=== PATIENT | female | born 1950 | race Caucasian/White ===

== ENCOUNTER 2017-05-18 12:21 | Inpatient (IN) ==
[2017-05-18 13:40] LABS: Bilirubin,Total 1.4 MG/DL (0.2-1.0); Calcium 9.4 MG/DL (8.5-10.1); Osmolality,Calculated 241.5 MOS/KG (273-304); Total Protein 8.4 G/DL (6.4-8.3)
--- NOTE | 2017-05-18 13:47 | XRay Report ---
Exam: XR chest 1V Date: 05/18/2017 1:08 PM Indication: Cough weight loss Comparison: 05/14/2017 Technical: AP portable upright Findings: The heart is normal in size. No obvious infiltrates or effusions. Mediastinum and bony structures appear intact. Mild scarring suspected in the perihilar regions. Clearing of the bases present with compared to previous study Impression: Mild scarring in the perihilar regions without acute cardiopulmonary pathology. PROCEDURE INTERPRETED AT [facility] DEPARTMENT OF RADIOLOGY Final Report Signed by: Dr. Tyrone Lira
[2017-05-18 13:48] LABS: Basophils % 0.1 % (0.0-0.8); Hematocrit 42.1 VOL% (35.7-47.0); Immature Granulocytes % 0.7 %; Immature Granulocytes Absolute 0.16 #; Lymphocytes # 2.9 10*3/uL (1.4-4.0); Lymphocytes % 12.3 % (21.3-54.2); Mean Corpuscular Hemoglobin 29 PG (27-34); Mean Corpuscular Volume 75.9 FL (87-102); Mean Platelet Volume 12.8 FL (9.6-12.0); Monocytes # 2.3 10*3/uL (0.11-0.8); Neutrophils # 17.9 10*3/uL (1.4-7.4); Neutrophils % 76.9 % (38.7-73.9); Platelet Count 464 T/CUMM (130-400); Red Blood Count 5.55 MC/CUMM (3.8-5.5); Red Cell Distribution Width 13.2 % (9.3-17.3); White Blood Count 23.3 T/CUMM (4-12)
[2017-05-18] MEDS ORDERED: POTASSIUM CHLORIDE 20 MEQ TABLET PO STA (13:51)
[2017-05-18] MEDS ORDERED: SODIUM CHLORIDE 0.9% 1,000 ML IV STA (13:53)
[2017-05-18] MEDS ORDERED: POTASSIUM CHLORIDE RIDER 100 ML IV ONE ×2 (13:53→15:31)
[2017-05-18] MEDS ORDERED: POTASSIUM CHLORIDE 20 MEQ TABLET PO ONE (13:55)
[2017-05-18] MEDS: POTASSIUM CHLORIDE RIDER 10 MEQ in PREMIX 1 EACH IV SCH ×2 (14:02→15:34)
--- NOTE | 2017-05-18 14:27 | CT Report ---
CT abdomen pelvis Indication: Abdominal pain, nausea vomiting and weight loss Comparison: None available Technique: Axial CT imaging of the abdomen and pelvis is performed without contrast. Findings: Cardiac and lung bases are within normal limits CT abdomen: The liver spleen pancreas and adrenal glands are normal in size and density. No evidence of focal lesion is demonstrated in these solid organs. Kidneys are normal in size and density. No evidence of hydronephrosis or nephrolithiasis is seen. The bowel caliber is normal and no wall thickening or adjacent inflammatory change is seen. No evidence of free fluid or free air is present. Appendix is been removed previously. Aortic caliber is normal with moderate amount of calcification. CT pelvis: The bowel and bladder appear within normal limits. The uterus and ovaries are absent. Impression: No evidence of acute process demonstrated. This CT exam was performed using one or more the following dose reduction techniques: Automated exposure control, adjustment of the MA and/or KV according to patient size, or use of iterative reconstruction technique. PROCEDURE INTERPRETED AT [facility] DEPARTMENT OF RADIOLOGY Final Report Signed by: Dr. Tl Rome
--- NOTE | 2017-05-18 15:12 | EKG Report ---
Stationary ECG Study [facility] ER Test Date: 05/18/2017 3:13:08 PM Pat Name: DYLON KEARNEY Department: Room: Gender: F Record Changer: : [id number] Requested by: Jose Francisco Giraldo Order Number: [id number] Reading MD: KERON PEDERSEN Intervals Douglas Rate: 94 P: 72 WV: 147 QRS: 64 QRSD: 79 T: 64 QT: 303 QTc: 355 Interpretive Statements SINUS RHYTHM NONSPECIFIC T-WAVE ABNORMALITY Electronically Signed On 05-19-17 05:18:35 CDT by KERON PEDERSEN [email or web address]
[2017-05-18 15:14] LABS: Apearance,Urine CLOUDY (Clear); Bilirubin,Urine Negative (Negative); Blood, Urine Negative (Negative); Glucose,Urine (UA) Negative (Negative); Ketones,Urine 20 mg/dL (Negative); Mucus,Urine Occasional /LPF (Occasional); Nitrite,Urine Negative (Negative); Protein,Urine 100 MG/DL; RBC,Urine 2 /HPF (0-4); Squamous Epithelial Cell,Urine Occasional /HPF (0-10); Urine Color Yellow (Yellow); Urine Specific Gravity 1.012 (1.001-1.035); Urine Urobilinogen < 2.0 EU/DL (0.2-1.0); WBC,Urine 3 /HPF (0-6)
[2017-05-18] MEDS ORDERED: MAGNESIUM SULF RIDER 4 GM in PREMIX 1 EACH IV PRN (15:32)
[2017-05-18] MEDS ORDERED: MAGNESIUM SULF RIDER 2 GM in PREMIX 1 EACH IV PRN (15:32)
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
[2017-05-18] MEDS ORDERED: SODIUM CHLORIDE 0.9% 1,000 ML IV SCH (16:00)
[2017-05-18] MEDS: SODIUM CHLOR 0.9% KCL 20 MEQ 20 MEQ/1,000 ML BAG IV SCH (16:46)
[2017-05-18] MEDS: CIPROFLOXACIN INJ 400 MG in PREMIX 1 EACH IV SCH (16:47)
[2017-05-18 16:49] LABS: Lymphocytes 19 % (20-55); Microcytosis Slight; Platelet Estimate Increased; Segmented Neutrophils 75 % (50-85); Total Cells Counted 100
[2017-05-18] MEDS: ONDANSETRON 4 MG/2 ML VIAL IV PRN (16:53)
[2017-05-18] MEDS: metroNIDAZOLE INJ 500 MG in PREMIX 1 EACH IV SCH ×2 (17:57→22:57)
[2017-05-18] MEDS ORDERED: TEMAZEPAM 15 MG CAPSULE PO ONE (21:40)
[2017-05-18] MEDS: SODIUM CHLORIDE 1 GM TABLET PO SCH (22:57)
[2017-05-19] MEDS: CIPROFLOXACIN INJ 400 MG in PREMIX 1 EACH IV SCH ×2 (03:09→16:04)
[2017-05-19] MEDS: metroNIDAZOLE INJ 500 MG in PREMIX 1 EACH IV SCH ×4 (04:30→22:08)
[2017-05-19 06:07] LABS: Albumin 3.1 G/DL (3.4-5.0); Bilirubin,Total 1.3 MG/DL (0.2-1.0); Calcium 8.3 MG/DL (8.5-10.1); Magnesium 2.1 MG/DL (1.8-2.4); Osmolality,Calculated 250.6 MOS/KG (273-304); Total Protein 6.2 G/DL (6.4-8.3)
[2017-05-19 06:16] LABS: Potassium 2.5 MMOL/L (3.5-5.1)
[2017-05-19] MEDS: POTASSIUM CHLORIDE RIDER 10 MEQ in PREMIX 1 EACH IV PRN ×6 (06:33→19:03)
[2017-05-19] MEDS: ONDANSETRON 4 MG/2 ML VIAL IV PRN (09:07)
[2017-05-19] MEDS: PANTOPRAZOLE 40 MG VIAL IV SCH (09:07)
[2017-05-19] MEDS: SODIUM CHLORIDE 1 GM TABLET PO SCH ×3 (09:54→22:07)
[2017-05-19] MEDS ORDERED: POTASSIUM CHLORIDE 20 MEQ TABLET PO ONE (10:38)
--- NOTE | 2017-05-19 10:53 | Hospitalist Progress Note ---
Assessment and Plan (1) Hyponatremia Status: Acute Assessment and plan: At the time of ED presentation, patient's sodium level was noted at 118. The patient was absent of any profound neurological deficits at the time of assessment. We will carefully replace and recheck labs in a.m. We will start normal saline with 20 of KCl at 65 mL an hour and sodium chloride tablets 2 g 3 times daily. 05/19-modest improvement in sodium; sodium noted at 124 today from 118 at the time of admission. No profound neurological deficits noted. We will continue normal saline with 20 KCl at 65 mL/hr and sodium chloride tablets 2 g 3 times daily. We will recheck sodium level in a.m. Current Visit: Yes (2) Hypokalemia Status: Acute Assessment and plan: Potassium was noted at 2.0 at the time of admission. We will carefully replace and recheck in a.m. We will start normal saline with 20 of KCl at 65 mL an hour. 05/19-Modest improvement in potassium however potassium remains low. Potassium noted at 2.5. We will give her 40 mEq of potassium as a one-time dose today in addition to potassium replacement protocol. We will continue normal saline with 20 KCl at 65 mL an hour. We will recheck CMP in a.m. Current Visit: Yes (3) Diarrhea Status: Acute Assessment and plan: The patient had multiple episodes of diarrhea in the ED. She reports that the diarrhea has been chronic in nature for the last couple of months. We have obtained stool specimen for ova and parasites, WBCs, C. difficile, and Gram stain. We will gently rehydrate and reassess in a.m. Current Visit: Yes (4) Unsatisfactory living conditions Status: Acute Assessment and plan: Patient currently lives alone. Her sister was present at bedside and voiced multiple concerns regarding the patient's current living situation. She spoke with the apartment purchasing manager/sales in the apartment purchasing manager/sales has expressed concerns to her also regarding the patient's living situation. We will consult social media content specialist and case management to evaluate for placement at the time of discharge. 05/19-social media content specialist has been consulted for alliance evaluation and swing bed placement. Current Visit: Yes (5) Weakness generalized Status: Acute Assessment and plan: We will consult physical and Occupational Therapy to evaluate and treat. Current Visit: Yes Hospitalist: Subjective Interval history: Patient seen and examined; no significant overnight events reported per staff. Sodium remains low at 2.5 today modest improvement; from 2.1 yesterday. Sodium noted at 124 up from 118 yesterday. Exam - Constitutional Vitals: Period Temp Pulse Resp BP Sys/Blanco Pulse Ox Last 24 Hr 98.2 F-99.2 F 84-113 16-24 90-154/51-110 97-100 General appearance: normal weight - Head Head exam: Present: normal inspection, normocephalic, atraumatic - Eye Eye exam: Present: EOMI. Absent: conjunctival injection Pupils: Present: SYEDA, normal accommodation - ENT ENT exam: Present: normal exam, normal external ear exam, normal oropharynx - Neck Neck exam: Present: normal inspection. Absent: lymphadenopathy, meningismus, tenderness, thyromegaly - Respiratory Respiratory exam: Present: clear to auscultation bilaterally. Absent: rales, rhonchi, stridor, wheezes - Cardiovascular Cardiovascular exam: Present: regular rate and rhythm. Absent: carotid bruit, diastolic murmur, gallop, JVD, rubs, systolic murmur - GI/Abdominal GI/Abdominal exam: Present: normal bowel sounds, soft - Extremities Exam Extremities exam: Present: normal inspection, normal capillary refill, full ROM. Absent: edema - Back Exam Back exam: Present: normal inspection - Neurological Exam Neurological exam: Present: alert, oriented X3, CN II-XII intact - Psychiatric Psychiatric exam: Present: flat affect - Skin Skin exam: Present: normal color, warm, dry Results - Labs CBC & BMP: 05/18/17 13:00 05/19/17 04:25 Lab Results: I have reviewed the past 24 hour labs
[2017-05-19] MEDS: ALPRAZolam 0.25 MG TABLET PO PRN ×2 (11:13→22:07)
--- NOTE | 2017-05-19 18:11 | Gastrointestinal Consult Note ---
Assessment and Plan (1) Nausea vomiting and diarrhea Status: Acute Assessment and plan: This patient has some nausea, vomiting, and diarrhea of unclear etiology and duration. There are no family members at the bedside and so the patient is minimizing her symptoms. With her sodium being this low as well as potassium there may be vomiting present perhaps commingled with psychogenic polydipsia as the patient tends to rehydrate with multiple bottles of 20 ounces of water per day although she seems conscious that she should be drinking some Gatorade is unclear what proportion these 2 liquids are being ingested. She appears to be responding well to sodium tablets and potassium as well as hydration. She is refusing GI workup here at this hospital and states that she much prefers to be seen by her physicians at [facility] and that [facility] is the center that she typically uses. She states that she would like to be seen by Jose Good if any scopes were required. I did relate to the patient that with her sodium being as low as it is that no anesthesiologist would allow routine endoscopic evaluation in any event. I am going to check her stools for Cryptosporidium and Giardia as well as rechecking C. difficile and a fecal white blood cell count. I suspect that she may have some underlying gastritis and that this is improved with IV pantoprazole. She could likely be advanced to a more solid diet which would cut back on her diarrhea somewhat, provided she is feeling better tomorrow. Would strongly suggest using a low lactose, low residue diet. Current Visit: Yes (2) Abnormal weight loss Status: Acute Assessment and plan: The patient's sister states that she has lost approximately 35-40 pounds over the last 4-5 months. This may certainly be volitional with decreased appetite and worsening of her psychiatric illness/grief. Patient may also be losing weight because of colon cancer, chronic inflammatory bowel disease, gastritis with poor p.o. intake, or a host of other GI issues. We await stool studies to see whether infection may be playing a role. I suspect that once her acid is blocked and her anxiety is controlled she may be a will tolerate a more solid diet. The patient may benefit from upper endoscopy or lower endoscopy but basically is refusing these evaluations at the time being until she can presented over at [facility] to Dr. Good. This is her choice. If she does change her mind, we could certainly consider doing the above procedures, noting that there are risks involved which include but are not limited to: Bleeding, infection, perforation, cardiac and pulmonary compromise. Current Visit: Yes History of Present Illness Chief complaint: Nausea/vomiting/diarrhea History of present illness: Ms. Cornelius is a 66 year old female who states that she gets most of her care provided at [facility], she states that she has had both upper and lower endoscopy done in the past and under no circumstances wishes to have either of these procedures done here at this hospital, she states that she will be going to see Dr. Jose Good in the future if these are needed. The patient has a great deal of tangential thinking but as near as I can figure out she has a history of nausea and vomiting and diarrhea that brought her to the emergency room runs recently, she states this is been going on for only last 6 days but during a previous encounter with hospitalist it was admitted that she had lost approximately 35-40 pounds over the last 5 months and that she was having some epigastric tenderness which is now dissipated completely on pantoprazole p.o. The patient states that because of the diarrhea she had been hydrating very aggressively at home including multiple 20 ounce bottles of water which may have had some bearing on her sodium level with psychogenic polydipsia. In retrospect she thinks that her diarrhea was not very severe at home at all this she was perhaps having 2 bowel movements per day she was having some nausea and vomiting but again only low-grade in her opinion. Her potassium level was down to 2.0 and her sodium level had been as low as 118 by laboratory testing by laboratory testing here at the hospital. She does not appear to be on any lithium. Her sodium is being treated with normal saline with potassium supplementation, oral supplementation of potassium as well as sodium chloride tablets 2 g p.o. 3 times daily. The patient's white blood cell count was 23.3 with a normal sinus hematocrit and hemoglobin of 42.1 and hemoglobin of 16.0. MCV is low at 75.9. Microbiology reports the patient had a stool culture done that was negative as well as C. difficile, fecal leukocytes have not been checked. She does not have much in the way of nausea now, no abdominal pain, she thinks that she could probably eat some food but she is afraid to try advancing her diet. At the same time as she says that she states that she does not want to drink clear liquids is make the diarrhea worse. She has not noticed any bright red blood per rectum but does feel raw from the multiple bowel movements. Home Medications Medication Instructions Recorded Confirmed Type Aspirin EC Tab 81 mg PO DAILY 05/18/17 05/18/17 History Esomeprazole Magnesium [Nexium] 40 mg PO DAILY 05/18/17 05/18/17 History Hydrocodone/Acetaminophen 1 each PO Q8HR PRN 05/18/17 05/18/17 History [Hydrocodon-Acetaminophn 10-325] Allergies Allergy/AdvReac Type Severity Reaction Status Date / Time Penicillins Allergy Unknown/Unable Verified 05/14/17 17:08 to obtain steroids Allergy Unknown/Unable Uncoded 05/14/17 17:08 to obtain Medical,Surgical,& Family Hx - Medical History HEENT: History of: Eye Problem (detached retnial) Gastrointestinal: History of: GI Problems (ulcer) - Surgical History Abdominal Surgeries: Surgical HX of: Abdominal Surgery Reproductive Surgeries: Surgical HX of;: Hysterectomy - Social History Smoking Status: Never smoker Frequency of Alcohol Use: None Type of Drug Use: None Review of systems: Constitutional: Denies fever, chills, but positive for recent nausea, and vomiting Eyes: Denies dry eyes, and scleral icterus HENT: Admits to frequent headaches Cardiovascular: Denies acute chest pain and claudication Respiratory: Denies shortness of breath, wheezing, and difficulty breathing, denies cough Gastrointestinal: As noted in the HPI Genitourinary: Denies dysuria and hematuria Neurologic: Denies vision loss, and loss of sensation Musculoskeletal: Denies joint swelling, but does present with joint stiffness, and muscular weakness Psychiatric: Patient does have some anxiety and depression is unclear if she has had previous episodes of leslie symptoms Heme-Lymph: She does admit to some easy bruising, lymph node enlargement/ tenderness, but no night sweats, excessive bleeding Allergies-immunologic: Denies pruritus and rhinorrhea Exam - Constitutional Vitals: Period Temp Pulse Resp BP Sys/Blanco Pulse Ox Last 24 Hr 98.2 F-99 F 82-113 18-24 90-149/51-76 97-99 Results - Labs CBC & BMP: 05/18/17 13:00 05/19/17 04:25
[2017-05-19] MEDS: SODIUM CHLOR 0.9% KCL 20 MEQ 20 MEQ/1,000 ML BAG IV SCH (22:08)
[2017-05-20 02:44] LABS: Basophils % 0.2 % (0.0-0.8); Eosinophils # 0.1 10*3/uL (0.0-0.87); Eosinophils % 0.3 % (0.00-10.9); Hematocrit 36.8 VOL% (35.7-47.0); Hemoglobin 13.4 GM/DL (12.0-16.0); Immature Granulocytes % 0.9 %; Immature Granulocytes Absolute 0.19 #; Lymphocytes # 4.6 10*3/uL (1.4-4.0); Mean Corpuscular HGB Conc 36.4 GM/DL (32-36); Mean Corpuscular Hemoglobin 29 PG (27-34); Mean Corpuscular Volume 79.5 FL (87-102); Mean Platelet Volume 12.6 FL (9.6-12.0); Monocytes # 2.6 10*3/uL (0.11-0.8); Monocytes % 12.5 % (1.7-12.7); Neutrophils # 13.3 10*3/uL (1.4-7.4); Neutrophils % 64.1 % (38.7-73.9); Platelet Count 334 T/CUMM (130-400); Red Blood Count 4.63 MC/CUMM (3.8-5.5); Red Cell Distribution Width 13.7 % (9.3-17.3); White Blood Count 20.8 T/CUMM (4-12)
[2017-05-20 02:58] LABS: Albumin 3.1 G/DL (3.4-5.0); Bilirubin,Total 1.1 MG/DL (0.2-1.0); Calcium 8.6 MG/DL (8.5-10.1); Magnesium 2.2 MG/DL (1.8-2.4); Osmolality,Calculated 265.4 MOS/KG (273-304); Phosphorous 1.9 MG/DL (2.5-4.9); Potassium 3.3 MMOL/L (3.5-5.1)
[2017-05-20 03:25] LABS: Eosinophils 1 % (0-10); Lymphocytes 29 % (20-55); Segmented Neutrophils 58 % (50-85); Total Cells Counted 100
[2017-05-20 03:27] LABS: Platelet Estimate Normal
[2017-05-20] MEDS: CIPROFLOXACIN INJ 400 MG in PREMIX 1 EACH IV SCH ×2 (03:59→18:30)
[2017-05-20] MEDS: metroNIDAZOLE INJ 500 MG in PREMIX 1 EACH IV SCH ×4 (05:07→22:16)
[2017-05-20] MEDS: POTASSIUM CHLORIDE RIDER 10 MEQ in PREMIX 1 EACH IV PRN ×4 (06:25→15:18)
[2017-05-20] MEDS ORDERED: POTASSIUM CHLORIDE 20 MEQ TABLET PO ONE (07:13)
--- NOTE | 2017-05-20 09:37 | Hospitalist Progress Note ---
Assessment and Plan (1) Hyponatremia Status: Acute Assessment and plan: At the time of ED presentation, patient's sodium level was noted at 118. The patient was absent of any profound neurological deficits at the time of assessment. We will carefully replace and recheck labs in a.m. We will start normal saline with 20 of KCl at 65 mL an hour and sodium chloride tablets 2 g 3 times daily. 05/19-modest improvement in sodium; sodium noted at 124 today from 118 at the time of admission. No profound neurological deficits noted. We will continue normal saline with 20 KCl at 65 mL/hr and sodium chloride tablets 2 g 3 times daily. We will recheck sodium level in a.m. 05/20-Sodium improved today; sodium noted at 133 today. We will continue normal saline with 20 KCl 65 mL an hour. We will decrease to sodium chloride tablets to once daily. Current Visit: Yes (2) Hypokalemia Status: Acute Assessment and plan: Potassium was noted at 2.0 at the time of admission. We will carefully replace and recheck in a.m. We will start normal saline with 20 of KCl at 65 mL an hour. 05/19-Modest improvement in potassium however potassium remains low. Potassium noted at 2.5. We will give her 40 mEq of potassium as a one-time dose today in addition to potassium replacement protocol. We will continue normal saline with 20 KCl at 65 mL an hour. We will recheck CMP in a.m. 05/20-Potassium noted at 3.3. We will replace and recheck in a.m. Current Visit: Yes (3) Diarrhea Status: Acute Assessment and plan: The patient had multiple episodes of diarrhea in the ED. She reports that the diarrhea has been chronic in nature for the last couple of months. We have obtained stool specimen for ova and parasites, WBCs, C. difficile, and Gram stain. We will gently rehydrate and reassess in a.m. 05/20-multiple episodes of diarrhea continue. Stools were essentially negative for C. difficile, white blood cells, and ova and parasites. We will continue hydration and start Questran. Current Visit: Yes (4) Unsatisfactory living conditions Status: Acute Assessment and plan: Patient currently lives alone. Her sister was present at bedside and voiced multiple concerns regarding the patient's current living situation. She spoke with the apartment client service and consulting manager in the apartment client service and consulting manager has expressed concerns to her also regarding the patient's living situation. We will consult dialysis social worker and case management to evaluate for placement at the time of discharge. 05/19-dialysis social worker has been consulted for alliance evaluation and swing bed placement. Current Visit: Yes (5) Weakness generalized Status: Acute Assessment and plan: We will consult physical and Occupational Therapy to evaluate and treat. Current Visit: Yes Hospitalist: Subjective Interval history: Patient seen and examined; chart reviewed. No significant overnight events reported per staff. Evaluated by GI on yesterday; however patient refuses GI workup at this time. Exam - Constitutional Vitals: Period Temp Pulse Resp BP Sys/Blanco Pulse Ox Last 24 Hr 97.9 F-99.3 F 79-95 18-20 114-149/61-71 96-99 General appearance: normal weight, no acute distress - Head Head exam: Present: normal inspection, normocephalic, atraumatic - Eye Eye exam: Present: EOMI Pupils: Present: SYEDA, normal accommodation - ENT ENT exam: Present: normal exam, normal external ear exam, normal oropharynx - Neck Neck exam: Present: normal inspection, lymphadenopathy, meningismus, thyromegaly - Respiratory Respiratory exam: Present: clear to auscultation bilaterally. Absent: rales, rhonchi, stridor, wheezes - Cardiovascular Cardiovascular exam: Present: regular rate and rhythm. Absent: carotid bruit, diastolic murmur, gallop, JVD, rubs, systolic murmur - GI/Abdominal GI/Abdominal exam: Present: normal bowel sounds, soft. Absent: firm, guarding, tenderness, rebound - Extremities Exam Extremities exam: Present: normal inspection, normal capillary refill, full ROM. Absent: edema - Back Exam Back exam: Present: normal inspection - Neurological Exam Neurological exam: Present: alert, oriented X3, CN II-XII intact - Psychiatric Psychiatric exam: Present: flat affect - Skin Skin exam: Present: normal color, warm, dry Results - Labs CBC & BMP: 05/20/17 01:42 05/20/17 01:42 Lab Results: I have reviewed the past 24 hour labs
[2017-05-20] MEDS ORDERED: ZINC OXIDE 16% PASTE 57 GM TUBE TOP PRN (09:41)
[2017-05-20] MEDS: CHOLESTYRAMINE/ASPARTAME 4 GM PACK PO SCH ×2 (10:13→20:19)
[2017-05-20] MEDS: PANTOPRAZOLE 40 MG VIAL IV SCH (10:13)
[2017-05-20] MEDS: SODIUM CHLORIDE 1 GM TABLET PO SCH (10:16)
[2017-05-20] MEDS: ALPRAZolam 0.25 MG TABLET PO PRN ×2 (11:07→20:19)
[2017-05-20] MEDS: ZINC OXIDE 16% PASTE 57 GM TUBE TOP SCH ×2 (11:07→20:21)
--- NOTE | 2017-05-20 20:22 | Gastrointestinal Progress Note ---
Assessment and Plan (1) Nausea vomiting and diarrhea Status: Acute Assessment and plan: This patient has some nausea, vomiting, and diarrhea of unclear etiology and duration. There are no family members at the bedside and so the patient is minimizing her symptoms. With her sodium being this low as well as potassium there may be vomiting present perhaps commingled with psychogenic polydipsia as the patient tends to rehydrate with multiple bottles of 20 ounces of water per day although she seems conscious that she should be drinking some Gatorade is unclear what proportion these 2 liquids are being ingested. She appears to be responding well to sodium tablets and potassium as well as hydration. She is refusing GI workup here at this hospital and states that she much prefers to be seen by her physicians at [facility] and that [facility] is the center that she typically uses. She states that she would like to be seen by Jose Good if any scopes were required. I did relate to the patient that with her sodium being as low as it is that no anesthesiologist would allow routine endoscopic evaluation in any event. I am going to check her stools for Cryptosporidium and Giardia as well as rechecking C. difficile and a fecal white blood cell count. I suspect that she may have some underlying gastritis and that this is improved with IV pantoprazole. She could likely be advanced to a more solid diet which would cut back on her diarrhea somewhat, provided she is feeling better tomorrow. Would strongly suggest using a low lactose, low residue diet. 05/20/17--patient is still having low-grade diarrhea measured by the nurses is being 2-3 per day. Her electrolytes are markedly improved. C. difficile is now negative 2 with negative fecal white blood cells and stool cultures that are negative as well. Patient's fecal fat is pending as is Cryptosporidium and Giardia but I suspect these will all be negative as well. At this point I would normally have done a colonoscopy except the patient is refusing this and wishes to have this done as an outpatient at [facility]. I have no problem with that. She can follow-up with Dr. Jose Good in the future. Is there is nothing more for me to offer, will sign off this case at this time. She might benefit from use of Viberzi 100 mg p.o. twice daily for diarrhea predominant irritable bowel syndrome if on biopsy she proves not to have infectious colitis. I would hold off on treating her with much of anything until she can undergo the scope, especially with the elevation white blood cell count she is experiencing. Current Visit: Yes (2) Abnormal weight loss Status: Acute Assessment and plan: The patient's sister states that she has lost approximately 35-40 pounds over the last 4-5 months. This may certainly be volitional with decreased appetite and worsening of her psychiatric illness/grief. Patient may also be losing weight because of colon cancer, chronic inflammatory bowel disease, gastritis with poor p.o. intake, or a host of other GI issues. We await stool studies to see whether infection may be playing a role. I suspect that once her acid is blocked and her anxiety is controlled she may be a will tolerate a more solid diet. The patient may benefit from upper endoscopy or lower endoscopy but basically is refusing these evaluations at the time being until she can presented over at [facility] to Dr. Good. This is her choice. If she does change her mind, we could certainly consider doing the above procedures, noting that there are risks involved which include but are not limited to: Bleeding, infection, perforation, cardiac and pulmonary compromise. 05/20/17--the patient may certainly have some of his weight loss due to underlying mental status issues. 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 She is on proton pump inhibitors for acid suppression to see if this helps out with her appetite. She has had a significant weight loss but prefers to follow-up with Dr. Good at [facility] for her future endoscopy and I have no problem with this. She is decides to undergo further GI workup here please reconsult me. Currently she does not appear to have any infectious organisms in her colon and so if evaluation of her colon takes place in the future and she does not have any microscopic or collagenous colitis in addition to no infectious colitis he will be prudent to try her on some Viberzi release Levsin to suppress her low-grade diarrhea. Thank you for the opportunity to meet this very interesting if somewhat loquacious patient. Current Visit: Yes Gastroenterology - PN: Subj Interval history: White blood cell count is mildly improved previously at 20 3.3K now down to 20.8 K. The patient's hydration has brought her hemoconcentration/hematocrit 42.1% down to 36.8%. She states that she does not feel much better, but I stenosis or documenting that her bowel movements down from 3 a day to 2 a day, with excellent urinary output at this point. Sodium and potassium levels are vastly improved from 118 and 2.0 on admission now up to 133 and 3.3. Electrolyte his potassium levels up to 3.7 as of 1600 tonight. Liver function tests are within normal limits at this point. The patient still seems slightly manic and still having flight of ideas. 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 Once again her sister is not by the bedside and so the veracity of these answers is unclear. Exam (Progress Note) - Constitutional Vitals: Period Temp Pulse Resp BP Sys/Blanco Pulse Ox Last 24 Hr 97.9 F-98.4 F 82-104 18-20 107-139/61-78 96-98 - Head Head exam: Present: normocephalic - Eye Eye exam: Present: EOMI - Respiratory Respiratory exam: Present: clear to auscultation bilaterally - Cardiovascular Cardiovascular exam: Present: regular rate and rhythm - GI/Abdominal GI/Abdominal exam: Present: normal bowel sounds, soft. Absent: distended, guarding, rebound - Neurological Exam Neurological exam: Present: alert, oriented X3 - Psychiatric Psychiatric exam: Present: normal affect, anxious - Skin Skin exam: Present: warm Results - Labs CBC & BMP: 05/20/17 01:42 05/20/17 17:08
[2017-05-21] MEDS: CIPROFLOXACIN INJ 400 MG in PREMIX 1 EACH IV SCH ×2 (03:20→16:39)
[2017-05-21] MEDS: SODIUM CHLOR 0.9% KCL 20 MEQ 20 MEQ/1,000 ML BAG IV SCH ×2 (03:21→22:35)
[2017-05-21] MEDS: metroNIDAZOLE INJ 500 MG in PREMIX 1 EACH IV SCH ×4 (04:28→22:33)
[2017-05-21 07:02] LABS: Basophils # 0.1 10*3/uL (0.0-0.2); Basophils % 0.2 % (0.0-0.8); Eosinophils # 0.2 10*3/uL (0.0-0.87); Eosinophils % 0.7 % (0.00-10.9); Hemoglobin 13.4 GM/DL (12.0-16.0); Immature Granulocytes Absolute 0.24 #; Lymphocytes # 3.1 10*3/uL (1.4-4.0); Lymphocytes % 12.4 % (21.3-54.2); Mean Corpuscular HGB Conc 36.2 GM/DL (32-36); Mean Corpuscular Hemoglobin 29 PG (27-34); Mean Corpuscular Volume 79.9 FL (87-102); Monocytes % 7.9 % (1.7-12.7); Neutrophils # 19.4 10*3/uL (1.4-7.4); Neutrophils % 77.8 % (38.7-73.9); Platelet Count 337 T/CUMM (130-400); Red Blood Count 4.63 MC/CUMM (3.8-5.5); Red Cell Distribution Width 13.9 % (9.3-17.3); White Blood Count 24.9 T/CUMM (4-12)
[2017-05-21 07:26] LABS: Giant Platelets Few; Hypochromasia 1+; Lymphocytes 14 % (20-55); Platelet Estimate Adequate; Segmented Neutrophils 78 % (50-85); Total Cells Counted 100
[2017-05-21 07:30] LABS: Albumin 3.2 G/DL (3.4-5.0); Bilirubin,Total 0.8 MG/DL (0.2-1.0); Calcium 8.4 MG/DL (8.5-10.1); Magnesium 2.1 MG/DL (1.8-2.4); Osmolality,Calculated 262.5 MOS/KG (273-304); Potassium 3.3 MMOL/L (3.5-5.1); Total Protein 6.1 G/DL (6.4-8.3)
--- NOTE | 2017-05-21 09:40 | Hospitalist Progress Note ---
Assessment and Plan (1) Hyponatremia Status: Acute Assessment and plan: At the time of ED presentation, patient's sodium level was noted at 118. The patient was absent of any profound neurological deficits at the time of assessment. We will carefully replace and recheck labs in a.m. We will start normal saline with 20 of KCl at 65 mL an hour and sodium chloride tablets 2 g 3 times daily. 05/19-modest improvement in sodium; sodium noted at 124 today from 118 at the time of admission. No profound neurological deficits noted. We will continue normal saline with 20 KCl at 65 mL/hr and sodium chloride tablets 2 g 3 times daily. We will recheck sodium level in a.m. 05/20-Sodium improved today; sodium noted at 133 today. We will continue normal saline with 20 KCl 65 mL an hour. We will decrease to sodium chloride tablets to once daily. 05/21- Sodium noted at 132 today; we will continue normal saline 20 KCl at 65 milliliters an hour. We will increase sodium chloride tablets to twice daily Current Visit: Yes (2) Hypokalemia Status: Acute Assessment and plan: Potassium was noted at 2.0 at the time of admission. We will carefully replace and recheck in a.m. We will start normal saline with 20 of KCl at 65 mL an hour. 05/19-Modest improvement in potassium however potassium remains low. Potassium noted at 2.5. We will give her 40 mEq of potassium as a one-time dose today in addition to potassium replacement protocol. We will continue normal saline with 20 KCl at 65 mL an hour. We will recheck CMP in a.m. 05/20-Potassium noted at 3.3. We will replace and recheck in a.m. 05/21- Potassium noted at 3.3. Will replace and recheck in AM. Current Visit: Yes (3) Diarrhea Status: Acute Assessment and plan: The patient had multiple episodes of diarrhea in the ED. She reports that the diarrhea has been chronic in nature for the last couple of months. We have obtained stool specimen for ova and parasites, WBCs, C. difficile, and Gram stain. We will gently rehydrate and reassess in a.m. 05/20-multiple episodes of diarrhea continue. Stools were essentially negative for C. difficile, white blood cells, and ova and parasites. We will continue hydration and start Questran. Current Visit: Yes Qualifiers: Diarrhea type: unspecified type Qualified Code(s): R19.7 - Diarrhea, unspecified (4) Unsatisfactory living conditions Status: Acute Assessment and plan: Patient currently lives alone. Her sister was present at bedside and voiced multiple concerns regarding the patient's current living situation. She spoke with the apartment manager risk in the apartment manager risk has expressed concerns to her also regarding the patient's living situation. We will consult social sciences chair and case management to evaluate for placement at the time of discharge. 05/19-social sciences chair has been consulted for alliance evaluation and swing bed placement. Current Visit: Yes (5) Weakness generalized Status: Acute Assessment and plan: We will consult physical and Occupational Therapy to evaluate and treat. 05/21-The patient has refused to get out of bed. I along with the nursing staff assisted the patient to the bathroom this morning. The patient's gait is very steady only requiring standby assist for safety. Current Visit: Yes Hospitalist: Subjective Interval history: Patient seen and examined; no significant overnight events reported. Lazo catheter removed on yesterday; however patient is refusing to get out of bed and go to the bathroom. Exam - Constitutional Vitals: Period Temp Pulse Resp BP Sys/Blanco Pulse Ox Last 24 Hr 97.9 F-98.4 F 90-120 18-20 104-139/58-78 18-98 General appearance: normal weight, no acute distress - Head Head exam: Present: normal inspection, normocephalic, atraumatic - Eye Eye exam: Present: EOMI, conjunctival injection Pupils: Present: SYEDA, normal accommodation - ENT ENT exam: Present: normal exam, normal external ear exam. Absent: normal oropharynx - Neck Neck exam: Present: normal inspection. Absent: lymphadenopathy, meningismus, tenderness, thyromegaly - Respiratory Respiratory exam: Present: clear to auscultation bilaterally. Absent: rales, rhonchi, stridor, wheezes - Cardiovascular Cardiovascular exam: Present: regular rate and rhythm, tachycardia. Absent: carotid bruit, diastolic murmur, gallop, JVD, rubs, systolic murmur - GI/Abdominal GI/Abdominal exam: Present: normal bowel sounds, soft - Extremities Exam Extremities exam: Present: normal inspection, normal capillary refill, full ROM. Absent: edema - Back Exam Back exam: Present: normal inspection - Neurological Exam Neurological exam: Present: alert, oriented X3, CN II-XII intact - Psychiatric Psychiatric exam: Present: flat affect, other (Verbally abusive to staff) - Skin Skin exam: Present: normal color, warm, dry Results - Labs CBC & BMP: 05/21/17 06:35 05/21/17 06:35
[2017-05-21] MEDS: PANTOPRAZOLE 40 MG VIAL IV SCH (10:19)
[2017-05-21] MEDS: CITALOPRAM 20 MG TABLET PO SCH (10:20)
[2017-05-21] MEDS: SODIUM CHLORIDE 1 GM TABLET PO SCH (10:20)
[2017-05-21] MEDS: ALPRAZolam 0.25 MG TABLET PO PRN ×2 (10:20→20:29)
[2017-05-21] MEDS: CHOLESTYRAMINE/ASPARTAME 4 GM PACK PO SCH ×2 (10:20→20:29)
[2017-05-21] MEDS: POTASSIUM CHLORIDE RIDER 10 MEQ in PREMIX 1 EACH IV PRN ×4 (10:21→18:10)
[2017-05-21] MEDS: CETIRIZINE 10 MG TABLET PO SCH (10:24)
[2017-05-21] MEDS: ZINC OXIDE 16% PASTE 57 GM TUBE TOP SCH ×2 (10:24→20:33)
--- NOTE | 2017-05-21 10:39 | Case Mgmt Physician Query Form ---
TB Signs and Symptoms Screening ([place]) INSTRUCTIONS: To be completed annually on residents/staff with a significant Tuberculin Skin Test (TST) upon admission/hire or a prior significant TST. To be completed on all staff at hire. Please respond to each listed symptom with an (X) in either the "YES" or "NO" box. Do you currently have any of the following symptoms: YES NO ( ) (x ) A cough If yes, is it: ( ) Productive ( ) Non- productive ( ) (x ) Hemoptysis (spitting up blood) ( ) (x ) Chest pains ( x) ( ) Weight Loss ( ) ( x) Fever ( ) (x ) Night Sweats ( x) ( ) Weakness ( ) ( x) Loss of Appetite ( ) ( x) Difficulty Breathing If you answered YES" to any of the above questions, how long have symptoms been present? Comments: Weight loss due to poor oral intake. Weakness due to physical deconditioning and inactivity. MTDD
[2017-05-21] MEDS ORDERED: TUBERCULIN SKIN TEST 0.1 ML SYRINGE INTRADERM ONE (12:00)
[2017-05-21] MEDS: ONDANSETRON 4 MG/2 ML VIAL IV PRN (13:26)
[2017-05-22] MEDS: POTASSIUM CHLORIDE RIDER 10 MEQ in PREMIX 1 EACH IV PRN ×6 (01:09→16:40)
[2017-05-22] MEDS: CIPROFLOXACIN INJ 400 MG in PREMIX 1 EACH IV SCH ×2 (05:43→17:32)
[2017-05-22 06:24] LABS: Basophils # 0.1 10*3/uL (0.0-0.2); Basophils % 0.3 % (0.0-0.8); Eosinophils # 0.6 10*3/uL (0.0-0.87); Eosinophils % 1.7 % (0.00-10.9); Hematocrit 35.7 VOL% (35.7-47.0); Hemoglobin 12.8 GM/DL (12.0-16.0); Immature Granulocytes % 0.9 %; Immature Granulocytes Absolute 0.28 #; Lymphocytes # 3.5 10*3/uL (1.4-4.0); Lymphocytes % 10.6 % (21.3-54.2); Mean Corpuscular HGB Conc 35.9 GM/DL (32-36); Mean Corpuscular Hemoglobin 29 PG (27-34); Mean Corpuscular Volume 80.8 FL (87-102); Mean Platelet Volume 12.4 FL (9.6-12.0); Monocytes # 2.2 10*3/uL (0.11-0.8); Monocytes % 6.7 % (1.7-12.7); Neutrophils % 79.8 % (38.7-73.9); Platelet Count 342 T/CUMM (130-400); Red Blood Count 4.42 MC/CUMM (3.8-5.5); Red Cell Distribution Width 13.9 % (9.3-17.3); White Blood Count 32.6 T/CUMM (4-12)
[2017-05-22] MEDS: metroNIDAZOLE INJ 500 MG in PREMIX 1 EACH IV SCH ×4 (06:41→21:12)
[2017-05-22 06:57] LABS: Albumin 3.1 G/DL (3.4-5.0); Bilirubin,Total 0.9 MG/DL (0.2-1.0); Calcium 8.3 MG/DL (8.5-10.1); Magnesium 2.1 MG/DL (1.8-2.4); Osmolality,Calculated 258.8 MOS/KG (273-304); Phosphorous 2.2 MG/DL (2.5-4.9); Total Protein 6.1 G/DL (6.4-8.3)
[2017-05-22] MEDS ORDERED: SODIUM PHOSPHATE INJ 30 MMOL in SODIUM CHLORIDE 0.9% 250 ML IV ONE (07:45)
[2017-05-22 07:46] LABS: Eosinophils 1 % (0-10); Hypochromasia 1+; Lymphocytes 12 % (20-55); Nucleated Red Blood Cells 1 (0-5); Segmented Neutrophils 83 % (50-85); Total Cells Counted 100
[2017-05-22 07:47] LABS: Microcytosis 1+; Platelet Estimate Normal
[2017-05-22 08:57] LABS: % Iron Saturation 12.8 % (18-50); Ferritin 232.3 ng/ml (8-252)
[2017-05-22] MEDS: PANTOPRAZOLE 40 MG VIAL IV SCH (09:30)
[2017-05-22] MEDS: POTASSIUM CHLORIDE 20 MEQ TABLET PO SCH (09:31)
[2017-05-22] MEDS: SODIUM CHLORIDE 1 GM TABLET PO SCH ×3 (09:31→21:11)
[2017-05-22] MEDS: CHOLESTYRAMINE/ASPARTAME 4 GM PACK PO SCH ×2 (09:31→21:11)
[2017-05-22] MEDS: CITALOPRAM 20 MG TABLET PO SCH (09:31)
[2017-05-22] MEDS: ALPRAZolam 0.25 MG TABLET PO PRN ×2 (09:31→21:21)
[2017-05-22] MEDS: CETIRIZINE 10 MG TABLET PO SCH (09:31)
[2017-05-22] MEDS: ZINC OXIDE 16% PASTE 57 GM TUBE TOP SCH ×2 (09:32→21:24)
[2017-05-22] MEDS: POTASSIUM PHOS/SOD PHOS POWDER 250 MG PACK PO SCH ×3 (09:32→16:39)
--- NOTE | 2017-05-22 10:07 | Hospitalist Progress Note ---
Assessment and Plan (1) Hyponatremia Status: Acute Assessment and plan: At the time of ED presentation, patient's sodium level was noted at 118. The patient was absent of any profound neurological deficits at the time of assessment. We will carefully replace and recheck labs in a.m. We will start normal saline with 20 of KCl at 65 mL an hour and sodium chloride tablets 2 g 3 times daily. 05/19-modest improvement in sodium; sodium noted at 124 today from 118 at the time of admission. No profound neurological deficits noted. We will continue normal saline with 20 KCl at 65 mL/hr and sodium chloride tablets 2 g 3 times daily. We will recheck sodium level in a.m. 05/20-Sodium improved today; sodium noted at 133 today. We will continue normal saline with 20 KCl 65 mL an hour. We will decrease to sodium chloride tablets to once daily. 05/21- Sodium noted at 132 today; we will continue normal saline 20 KCl at 65 milliliters an hour. We will increase sodium chloride tablets to twice daily 05/22-sodium noted at 130 today; we will continue normal saline with 20 KCl continue sodium chloride tablets as previously ordered. Current Visit: Yes (2) Hypokalemia Status: Acute Assessment and plan: Potassium was noted at 2.0 at the time of admission. We will carefully replace and recheck in a.m. We will start normal saline with 20 of KCl at 65 mL an hour. 05/19-Modest improvement in potassium however potassium remains low. Potassium noted at 2.5. We will give her 40 mEq of potassium as a one-time dose today in addition to potassium replacement protocol. We will continue normal saline with 20 KCl at 65 mL an hour. We will recheck CMP in a.m. 05/20-Potassium noted at 3.3. We will replace and recheck in a.m. 05/21- Potassium noted at 3.3. Will replace and recheck in AM. Current Visit: Yes (3) Diarrhea Status: Acute Assessment and plan: The patient had multiple episodes of diarrhea in the ED. She reports that the diarrhea has been chronic in nature for the last couple of months. We have obtained stool specimen for ova and parasites, WBCs, C. difficile, and Gram stain. We will gently rehydrate and reassess in a.m. 05/20-multiple episodes of diarrhea continue. Stools were essentially negative for C. difficile, white blood cells, and ova and parasites. We will continue hydration and start Questran. Current Visit: Yes Qualifiers: Diarrhea type: unspecified type Qualified Code(s): R19.7 - Diarrhea, unspecified (4) Unsatisfactory living conditions Status: Acute Assessment and plan: Patient currently lives alone. Her sister was present at bedside and voiced multiple concerns regarding the patient's current living situation. She spoke with the apartment data processing manager in the apartment data processing manager has expressed concerns to her also regarding the patient's living situation. We will consult executive secretary social welfare and case management to evaluate for placement at the time of discharge. 05/19-executive secretary social welfare has been consulted for alliance evaluation and swing bed placement. Current Visit: Yes (5) Weakness generalized Status: Acute Assessment and plan: We will consult physical and Occupational Therapy to evaluate and treat. 05/21-The patient has refused to get out of bed. I along with the nursing staff assisted the patient to the bathroom this morning. The patient's gait is very steady only requiring standby assist for safety. Current Visit: Yes Hospitalist: Subjective Interval history: Patient seen and examined. No significant overnight events reported overnight. Case management is been consulted for evaluation for [facility] facility. Exam - Constitutional Vitals: Period Temp Pulse Resp BP Sys/Blanco Pulse Ox Last 24 Hr 97.2 F-98.7 F 104-117 18-20 105-153/60-80 93-98 General appearance: normal weight, no acute distress - Head Head exam: Present: normal inspection, normocephalic, atraumatic - Eye Eye exam: Present: EOMI, conjunctival injection Pupils: Present: SYEDA, normal accommodation - ENT ENT exam: Present: normal exam, normal external ear exam, normal oropharynx - Neck Neck exam: Present: normal inspection. Absent: lymphadenopathy, meningismus, thyromegaly - Respiratory Respiratory exam: Present: clear to auscultation bilaterally. Absent: rales, rhonchi, stridor, wheezes - Cardiovascular Cardiovascular exam: Present: bradycardia, regular rate and rhythm. Absent: carotid bruit, diastolic murmur, gallop, JVD, rubs, systolic murmur - GI/Abdominal GI/Abdominal exam: Present: normal bowel sounds, soft - Extremities Exam Extremities exam: Present: normal inspection, normal capillary refill, full ROM. Absent: edema - Back Exam Back exam: Present: normal inspection - Neurological Exam Neurological exam: Present: alert, oriented X3. Absent: CN II-XII intact - Psychiatric Psychiatric exam: Present: normal affect, normal mood - Skin Skin exam: Present: normal color, warm, dry Results - Labs CBC & BMP: 05/22/17 05:34 05/22/17 05:34 Lab Results: I have reviewed the past 24 hour labs
--- NOTE | 2017-05-22 11:30 | Infectious Disease Consult ---
Assessment and Plan (1) Gastroenteritis Status: Acute Assessment and plan: Possibly viral, it was nonbloody and not associated with fever. The diarrhea and vomiting have more or less resolved. Recommendations: Suggest stopping ciprofloxacin and Flagyl Current Visit: Yes (2) Leukocytosis Status: Acute Assessment and plan: Worsening leukocytosis since admission suspect stress response. The patient is completely nontoxic appearing with no obvious focus of ongoing bacterial infection at this time. The gastroenteritis could have caused it but that is better than the leukocytosis is worsening. Recommendations: 1. Follow-up blood cultures which unfortunately were only ordered today 2. Would observe the patient off antibiotics given how well she looks 3. HIV serology for completeness sake [would actually expect leukopenia with HIV rather than the leukocytosis she has no] Thank you very much for the consult. Will follow. Discussed with Dr. Kimble Current Visit: Yes History of Present Illness Chief complaint: Leukocytosis History of present illness: Ms. Cornelius is a 66 year old female who presented to hospital 4 days ago with nausea vomiting and diarrhea. She had been to the emergency room 9 days ago because of an anxiety attack she says. She was discharged home the same day and soon after getting home she started feeling malaise and then nauseous and within 24 hours she started having diarrhea. She also was developed intermittent vomiting. The diarrhea got so severe that she was weak and her family found her in a bad state at home. Apparently she is recluse and lives in a negative environment alone in her apartment. The patient has not had any fever throughout all this. On admission she was started on ciprofloxacin and Flagyl. Diarrhea has improved significantly with may be 3 soft stools over the past 24 hours. Her appetite is picked up and she is actually desirous of food, no longer vomiting. She had leukocytosis of about 24 on admission and that has worsened to about 33 today. I am asked to advise on management. Home Medications Medication Instructions Recorded Confirmed Type Aspirin EC Tab 81 mg PO DAILY 05/18/17 05/18/17 History Esomeprazole Magnesium [Nexium] 40 mg PO DAILY 05/18/17 05/18/17 History Hydrocodone/Acetaminophen 1 each PO Q8HR PRN 05/18/17 05/18/17 History [Hydrocodon-Acetaminophn 10-325] Allergies Allergy/AdvReac Type Severity Reaction Status Date / Time Penicillins Allergy Unknown/Unable Verified 05/14/17 17:08 to obtain steroids Allergy Unknown/Unable Uncoded 05/14/17 17:08 to obtain 12 point system: reviewed and no additional remarkable complaints except as stated (Per HPI) Medical,Surgical,& Family Hx - Medical History HEENT: History of: Eye Problem (detached retnial) Gastrointestinal: History of: GI Problems (ulcer) - Surgical History Abdominal Surgeries: Surgical HX of: Abdominal Surgery Reproductive Surgeries: Surgical HX of;: Hysterectomy - Social History Smoking Status: Never smoker Frequency of Alcohol Use: None Type of Drug Use: None Infectious Disease Exam H&P - Constitutional Vitals: Vital Signs Temp Pulse Resp BP Pulse Ox 97.2 F L 112 H 18 142/70 93 L 05/22/17 08:00 05/22/17 08:00 05/22/17 08:00 05/22/17 08:00 05/22/17 08:00 Intake and Output 05/21/17 05/22/17 05/22/17 23:59 07:59 15:59 Intake Total 2100 / 2100 600 / 600 300 / 300 Balance 2100 / 2100 600 / 600 300 / 300 Intake: IV 1600 / 1600 300 / 300 300 / 300 Cipro Inj 400 mg In 200 / 200 200 / 200 Premix 1 Each @ 200 mls/ hr IV Q12H INDRA Rx#: [id number] Potassium Chloride Marvin 200 / 200 300 / 300 100 / 100 10 Meq/100 ml In Premix 1 Each @ 100 mls/hr IV . PER PROTOCOL PRN Rx#: [id number] NS KCL 20 MEQ 20 meq In 1 1000 / 1000 ,000 ml @ 60 mls/hr IV . [id number] INDRA Rx#: [id number] Flagyl Inj 500 mg In 200 / 200 Premix 1 Each @ 100 mls/ hr IV Q6H INDRA Rx#: [id number] Oral 500 / 500 300 / 300 Other: Voiding Method Toilet Toilet # Voids 6 5 # Bowel Movements 2 2 Exam: General: Patient comfortable, very conversant and seems rather intelligent, she is completely nontoxic appearing HEENT: Mucous membranes pink and moist, anicteric acyanotic, SYEDA, no oropharyngeal exudates Neck: Supple, no thyroid gland enlargement, no lymphadenopathy Respiratory system: Breath sounds vesicular, no crepitations or wheezes Cardiovascular: Normal S1 and S2, no murmurs appreciated Abdomen: Normal bowel sounds, soft nontender throughout, no organomegaly or mass Genitourinary: No suprapubic pain or bladder distention Extremities: no edema Skin: Plaque-like rash over her shins Reports - Labs CBC & BMP: 05/22/17 05:34 05/22/17 09:23 Labs: Laboratory Results - last 24 hr 05/19/17 05/21/17 05/22/17 06:30 23:05 05:31 WBC RBC Hgb Hct MCV MCH MCHC RDW Plt Count MPV Neut % (Auto) Lymph % (Auto) Collin % (Auto) Eos % (Auto) Baso % (Auto) Neut # (Auto) Lymph # (Auto) Collin # (Auto) Eos # (Auto) Baso # (Auto) Total Counted Immature Gran % Nucleated RBC % Immature Gran # Segmented Neutrophils Lymphocytes Monocytes Eosinophils Nucleated RBCs Nucleated RBCs # Platelet Estimate Immature Plt Fraction Hypochromasia Microcytosis Morphology Comment Sodium Potassium 3.3 L Chloride Carbon Dioxide Anion Gap BUN Creatinine GFR Calculation BUN/Creatinine Ratio Glucose Calculated Osmolality Calcium Phosphorus Magnesium Iron 33 L TIBC 258 % Saturation 12.8 L Ferritin 232.3 Total Bilirubin AST ALT Alkaline Phosphatase Total Protein Albumin Globulin Albumin/Globulin Ratio Thyroid Platte Prof 1.6 05/22/17 05/22/17 05/22/17 05:31 05:34 05:34 WBC 32.6 H D RBC 4.42 Hgb 12.8 Hct 35.7 MCV 80.8 L MCH 29 MCHC 35.9 RDW 13.9 Plt Count 342 MPV 12.4 H Neut % (Auto) 79.8 H Lymph % (Auto) 10.6 L Collin % (Auto) 6.7 Eos % (Auto) 1.7 Baso % (Auto) 0.3 Neut # (Auto) 26.0 H Lymph # (Auto) 3.5 Collin # (Auto) 2.2 H Eos # (Auto) 0.6 Baso # (Auto) 0.1 Total Counted 100 Immature Gran % 0.9 Nucleated RBC % 0.0 Immature Gran # 0.28 Segmented Neutrophils 83 Lymphocytes 12 L Monocytes 4 Eosinophils 1 Nucleated RBCs 1 Nucleated RBCs # 0.00 Platelet Estimate Normal Immature Plt Fraction 0.0 Hypochromasia 1+ Microcytosis 1+ Morphology Comment Sodium 130 L Potassium 4.0 Chloride 97 L Carbon Dioxide 25 Anion Gap 12.0 BUN 7 Creatinine 0.70 GFR Calculation 78 BUN/Creatinine Ratio 10.00 Glucose 110 H Calculated Osmolality 258.8 L Calcium 8.3 L Phosphorus 2.2 L Magnesium 2.1 Iron 34 L TIBC % Saturation Ferritin Total Bilirubin 0.90 AST 17 ALT 24 Alkaline Phosphatase 66 Total Protein 6.1 L Albumin 3.1 L Globulin 3.0 Albumin/Globulin Ratio 1.0 L Thyroid [place]atte Prof 05/22/17 09:23 WBC RBC Hgb Hct MCV MCH MCHC RDW Plt Count MPV Neut % (Auto) Lymph % (Auto) Collin % (Auto) Eos % (Auto) Baso % (Auto) Neut # (Auto) Lymph # (Auto) Collin # (Auto) Eos # (Auto) Baso # (Auto) Total Counted Immature Gran % Nucleated RBC % Immature Gran # Segmented Neutrophils Lymphocytes Monocytes Eosinophils Nucleated RBCs Nucleated RBCs # Platelet Estimate Immature Plt Fraction Hypochromasia Microcytosis Morphology Comment Sodium Potassium 3.7 Chloride Carbon Dioxide Anion Gap BUN Creatinine GFR Calculation BUN/Creatinine Ratio Glucose Calculated Osmolality Calcium Phosphorus Magnesium Iron TIBC % Saturation Ferritin Total Bilirubin AST ALT Alkaline Phosphatase Total Protein Albumin Globulin Albumin/Globulin Ratio Thyroid Platte Prof - Diagnostic Findings Procedure: Chest x-ray: image reviewed by me, report reviewed by me (Completely normal ), CT Abdomen and Pelvis: report reviewed by me (Unremarkable study)
--- NOTE | 2017-05-22 11:40 | Oncology Consult Note ---
History of Present Illness History of present illness: Ms. Cornelius is a 66 year old female who presented with leukocytosis among other things. I was asked to see this patient because of leukocytosis. Her white cell count was 24,900 on May 21 and is is up to 32,600 today. Her absolute neutrophil count is elevated at 26,000 with a normal absolute lymphocyte count. She has no nucleated red cells and only a small portion of her neutrophils are immature. Her hemoglobin is 12.8 and her platelet count is 342,000. These findings are suggestive of a process other than malignancy. In addition, her comprehensive metabolic profile demonstrates hyponatremia with a serum sodium of 130. Her serum calcium is 8.3 and she has a correspondingly low serum albumin of 3.1. Her transaminases and alkaline phosphatase are normal. She has had a serum iron done and it is 34, which is low with a total iron- binding capacity that is normal at 258. She tells me she is feeling better now and she expressed the opinion that she may be seeing more doctors than she needs to see. She also tells me that her last previous upper and lower GI evaluation were done by Dr. Stringer around a year ago or possibly more. She evidently wants to be followed by Dr. Good at [facility] at some point. Allergies/Adverse Reactions: Allergies Allergy/AdvReac Type Severity Reaction Status Date / Time Penicillins Allergy Unknown/Unable Verified 05/14/17 17:08 to obtain steroids Allergy Unknown/Unable Uncoded 05/14/17 17:08 to obtain Home Medications: Home Medications Medication Instructions Recorded Confirmed Type Aspirin EC Tab 81 mg PO DAILY 05/18/17 05/18/17 History Esomeprazole Magnesium [Nexium] 40 mg PO DAILY 05/18/17 05/18/17 History Hydrocodone/Acetaminophen 1 each PO Q8HR PRN 05/18/17 05/18/17 History [Hydrocodon-Acetaminophn 10-325] Review of System - Review of System 12 point system: reviewed and no additional remarkable complaints except as stated - Review of System Constitutional: Present: weight loss (40 lbs in last 4-5 months). Absent: chills, diaphoresis, fever (Low grade fever at home but not currently) Respiratory: Absent: cough, respiratory distress Gastrointestinal: Present: abdominal pain, nausea, vomiting, diarrhea Musculoskeletal: Absent: back pain, leg pain Neurological: Absent: headache, weakness Medical,Surgical,& Family Hx - Medical History Gastrointestinal: History of: GI Problems (ulcer) - Surgical History Abdominal Surgeries: Surgical HX of: Abdominal Surgery Reproductive Surgeries: Surgical HX of;: Hysterectomy - Social History Smoking Status: Never smoker Frequency of Alcohol Use: None Physical examination: General: The patient appears to be relatively well-developed, well-nourished and in no acute distress. Eyes: Normal lids and conjunctivae. ENT: Her oral mucosa and pharynx are normal. Her trachea is midline and she has no neck masses. Lungs: Breath sounds are normal without rubs, rales or rhonchi. There is symmetrical unlabored chest motion with respiration. Cardiovascular: Her heart rhythm is regular without murmur, gallop or rub. There is no jugular venous distention, clubbing or cyanosis. Abdomen: Her abdomen is slightly protuberant but there is no ascites or organomegaly and no distention or tenderness. Musculoskeletal: There is no focal muscle atrophy or bone or joint deformity. Neurologic: Cranial nerves II through XII are intact. There are no focal neurologic deficits. Nodes: There is no cervical, supraclavicular, axillary or submandibular adenopathy. Impression: Elevated mature neutrophil count without any evidence to suggest hematologic malignancy. Red cell count and platelet count are normal. I suspect that the neutrophilia is reactive. I will follow her with you. I am not going to order additional tests presently. She is undergoing evaluation of a relatively extensive nature already. Thank you. Home Medications Medication Instructions Recorded Confirmed Type Aspirin EC Tab 81 mg PO DAILY 05/18/17 05/18/17 History Esomeprazole Magnesium [Nexium] 40 mg PO DAILY 05/18/17 05/18/17 History Hydrocodone/Acetaminophen 1 each PO Q8HR PRN 05/18/17 05/18/17 History [Hydrocodon-Acetaminophn 10-325] Allergies Allergy/AdvReac Type Severity Reaction Status Date / Time Penicillins Allergy Unknown/Unable Verified 05/14/17 17:08 to obtain steroids Allergy Unknown/Unable Uncoded 05/14/17 17:08 to obtain Medical,Surgical,& Family Hx - Medical History HEENT: History of: Eye Problem (detached retnial) Gastrointestinal: History of: GI Problems (ulcer) - Surgical History Abdominal Surgeries: Surgical HX of: Abdominal Surgery Reproductive Surgeries: Surgical HX of;: Hysterectomy - Social History Smoking Status: Never smoker Frequency of Alcohol Use: None Type of Drug Use: None Exam - Constitutional Vitals: Period Temp Pulse Resp BP Sys/Blanco Pulse Ox Last 24 Hr 97.2 F-98.7 F 104-117 18-20 105-153/60-80 93-98 Results - Labs CBC & BMP: 05/23/17 02:05 05/22/17 09:23
[2017-05-22 13:49] LABS: HIV Antigen/Antibody Result Nonreactive (Nonreactive)
[2017-05-22 17:45] LABS: Cryptosporidium Antigen Stool Negative (Negative)
[2017-05-22] MEDS: SODIUM CHLOR 0.9% KCL 20 MEQ 20 MEQ/1,000 ML BAG IV SCH (18:45)
[2017-05-23] MEDS: metroNIDAZOLE INJ 500 MG in PREMIX 1 EACH IV SCH (02:09)
[2017-05-23 02:44] LABS: Basophils # 0.1 10*3/uL (0.0-0.2); Basophils % 0.3 % (0.0-0.8); Eosinophils # 0.9 10*3/uL (0.0-0.87); Eosinophils % 3.1 % (0.00-10.9); Hematocrit 35.6 VOL% (35.7-47.0); Hemoglobin 12.7 GM/DL (12.0-16.0); Immature Granulocytes % 0.9 %; Immature Granulocytes Absolute 0.25 #; Lymphocytes # 4.6 10*3/uL (1.4-4.0); Lymphocytes % 15.9 % (21.3-54.2); Mean Corpuscular HGB Conc 35.7 GM/DL (32-36); Mean Corpuscular Hemoglobin 29 PG (27-34); Mean Corpuscular Volume 80.9 FL (87-102); Monocytes # 2.2 10*3/uL (0.11-0.8); Monocytes % 7.4 % (1.7-12.7); Neutrophils # 21.1 10*3/uL (1.4-7.4); Neutrophils % 72.4 % (38.7-73.9); Platelet Count 343 T/CUMM (130-400); Red Cell Distribution Width 13.8 % (9.3-17.3); White Blood Count 29.1 T/CUMM (4-12)
[2017-05-23 03:09] LABS: Phosphorous 2.6 MG/DL (2.5-4.9)
[2017-05-23] MEDS: CIPROFLOXACIN INJ 400 MG in PREMIX 1 EACH IV SCH (04:10)
[2017-05-23] MEDS: SODIUM CHLOR 0.9% KCL 20 MEQ 20 MEQ/1,000 ML BAG IV SCH ×3 (04:12→22:25)
[2017-05-23] MEDS ORDERED: ACETAMINOPHEN 325 MG TABLET PO PRN (08:55)
--- NOTE | 2017-05-23 08:56 | Hospitalist Progress Note ---
<Jorge Do - Last Filed: 05/23/17 08:51> Assessment and Plan (1) Hyponatremia Status: Acute Assessment and plan: At the time of ED presentation, patient's sodium level was noted at 118. The patient was absent of any profound neurological deficits at the time of assessment. We will carefully replace and recheck labs in a.m. We will start normal saline with 20 of KCl at 65 mL an hour and sodium chloride tablets 2 g 3 times daily. 05/19-modest improvement in sodium; sodium noted at 124 today from 118 at the time of admission. No profound neurological deficits noted. We will continue normal saline with 20 KCl at 65 mL/hr and sodium chloride tablets 2 g 3 times daily. We will recheck sodium level in a.m. 05/20-Sodium improved today; sodium noted at 133 today. We will continue normal saline with 20 KCl 65 mL an hour. We will decrease to sodium chloride tablets to once daily. 05/21- Sodium noted at 132 today; we will continue normal saline 20 KCl at 65 milliliters an hour. We will increase sodium chloride tablets to twice daily 05/22-sodium noted at 130 today; we will continue normal saline with 20 KCl continue sodium chloride tablets as previously ordered. 05/23-continue IV fluids and sodium chloride tablets as ordered. Will recheck labs in a.m. Current Visit: Yes (2) Hypokalemia Status: Acute Assessment and plan: Potassium was noted at 2.0 at the time of admission. We will carefully replace and recheck in a.m. We will start normal saline with 20 of KCl at 65 mL an hour. 05/19-Modest improvement in potassium however potassium remains low. Potassium noted at 2.5. We will give her 40 mEq of potassium as a one-time dose today in addition to potassium replacement protocol. We will continue normal saline with 20 KCl at 65 mL an hour. We will recheck CMP in a.m. 05/20-Potassium noted at 3.3. We will replace and recheck in a.m. 05/21- Potassium noted at 3.3. Will replace and recheck in AM. Current Visit: Yes (3) Diarrhea Status: Acute Assessment and plan: The patient had multiple episodes of diarrhea in the ED. She reports that the diarrhea has been chronic in nature for the last couple of months. We have obtained stool specimen for ova and parasites, WBCs, C. difficile, and Gram stain. We will gently rehydrate and reassess in a.m. 05/20-multiple episodes of diarrhea continue. Stools were essentially negative for C. difficile, white blood cells, and ova and parasites. We will continue hydration and start Questran. 05/23-multiple stools reported on last night per staff. We will start Lomotil 3 times daily. Current Visit: Yes Qualifiers: Diarrhea type: unspecified type Qualified Code(s): R19.7 - Diarrhea, unspecified (4) Unsatisfactory living conditions Status: Acute Assessment and plan: Patient currently lives alone. Her sister was present at bedside and voiced multiple concerns regarding the patient's current living situation. She spoke with the apartment manager field sales in the apartment manager field sales has expressed concerns to her also regarding the patient's living situation. We will consult social work program coordinator and case management to evaluate for placement at the time of discharge. 05/19-social work program coordinator has been consulted for alliance evaluation and swing bed placement. Current Visit: Yes (5) Weakness generalized Status: Acute Assessment and plan: We will consult physical and Occupational Therapy to evaluate and treat. 05/21-The patient has refused to get out of bed. I along with the nursing staff assisted the patient to the bathroom this morning. The patient's gait is very steady only requiring standby assist for safety. Current Visit: Yes (6) Leukocytosis Status: Acute Assessment and plan: Patient was seen and evaluated by infectious disease on yesterday. We appreciate the input. We will await follow-up blood cultures for results. Antibiotic agents have been discontinued per ID recommendation. We will monitor closely. White blood cell count noted at 29.1. The source of the patient's leukocytosis may be indeed associated with stress response; since no obvious signs of infection have been identified. Current Visit: Yes Hospitalist: Subjective Interval history: Patient seen and examined; chart reviewed. Patient reported multiple loose stools on last night. We will start a antidiarrheal agent today reassess in a.m. Exam - Constitutional Vitals: Period Temp Pulse Resp BP Sys/Blanco Pulse Ox Last 24 Hr 97.2 F-99 F 97-110 18-110 124-141/65-99 96-97 General appearance: normal weight, no acute distress - Head Head exam: Present: normal inspection, normocephalic, atraumatic - Eye Eye exam: Present: EOMI. Absent: conjunctival injection Pupils: Present: SYEDA, normal accommodation - ENT ENT exam: Present: normal exam, normal external ear exam, normal oropharynx - Neck Neck exam: Present: normal inspection. Absent: lymphadenopathy, meningismus, thyromegaly - Respiratory Respiratory exam: Present: clear to auscultation bilaterally. Absent: rales, rhonchi, stridor, wheezes - Cardiovascular Cardiovascular exam: Present: regular rate and rhythm, tachycardia. Absent: carotid bruit, diastolic murmur, JVD, systolic murmur - GI/Abdominal GI/Abdominal exam: Present: normal bowel sounds, soft - Extremities Exam Extremities exam: Present: normal inspection, normal capillary refill, full ROM. Absent: edema - Back Exam Back exam: Present: normal inspection - Neurological Exam Neurological exam: Present: alert, oriented X3, CN II-XII intact - Psychiatric Psychiatric exam: Present: flat affect - Skin Skin exam: Present: normal color, warm, dry Results - Labs CBC & BMP: 05/23/17 02:05 05/22/17 09:23 Lab Results: I have reviewed the past 24 hour labs <Kristan You - Last Filed: 05/23/17 10:22> Hospitalist: Subjective Interval history: Patient seen. She wants something for her diarrhoea and back pain. We will start Lomotil and Suring prn. Exam - Constitutional Vitals: Period Temp Pulse Resp BP Sys/Blanco Pulse Ox Last 24 Hr 97.1 F-99 F 97-110 18-110 122-141/65-99 95-97 Results - Labs CBC & BMP: 05/23/17 02:05 05/22/17 09:23
[2017-05-23] MEDS ORDERED: DIPHENOXYLATE/ATROPINE 2.5-0.025 MG TABLET PO SCH (09:00)
[2017-05-23] MEDS: POTASSIUM CHLORIDE 20 MEQ TABLET PO SCH (09:28)
[2017-05-23] MEDS: PANTOPRAZOLE 40 MG VIAL IV SCH (09:29)
[2017-05-23] MEDS: CITALOPRAM 20 MG TABLET PO SCH (09:29)
[2017-05-23] MEDS: SODIUM CHLORIDE 1 GM TABLET PO SCH ×3 (09:29→22:27)
[2017-05-23] MEDS: CHOLESTYRAMINE/ASPARTAME 4 GM PACK PO SCH ×2 (09:29→22:27)
[2017-05-23] MEDS: CETIRIZINE 10 MG TABLET PO SCH (09:29)
[2017-05-23] MEDS: ZINC OXIDE 16% PASTE 57 GM TUBE TOP SCH ×2 (09:29→22:27)
[2017-05-23] MEDS: POTASSIUM PHOS/SOD PHOS POWDER 250 MG PACK PO SCH ×3 (09:30→17:16)
[2017-05-23] MEDS: MULTIVITAMIN (BEROCCA) TABLET PO SCH (09:36)
[2017-05-23] MEDS: DIPHENOXYLATE/ATROPINE 2.5-0.025 MG TABLET PO SCH ×3 (09:36→22:27)
[2017-05-23] MEDS: ALPRAZolam 0.25 MG TABLET PO PRN ×2 (09:39→22:27)
[2017-05-23] MEDS: ASPIRIN EC 81 MG TABLET PO SCH (11:46)
[2017-05-24] MEDS: SODIUM CHLOR 0.9% KCL 20 MEQ 20 MEQ/1,000 ML BAG IV SCH ×2 (01:20→15:00)
[2017-05-24 02:44] LABS: Basophils # 0.1 10*3/uL (0.0-0.2); Basophils % 0.5 % (0.0-0.8); Eosinophils # 1.1 10*3/uL (0.0-0.87); Eosinophils % 4.8 % (0.00-10.9); Hematocrit 32.7 VOL% (35.7-47.0); Hemoglobin 11.6 GM/DL (12.0-16.0); Immature Granulocytes % 0.8 %; Immature Granulocytes Absolute 0.18 #; Lymphocytes # 6.4 10*3/uL (1.4-4.0); Lymphocytes % 29.4 % (21.3-54.2); Mean Corpuscular HGB Conc 35.5 GM/DL (32-36); Mean Corpuscular Hemoglobin 29 PG (27-34); Mean Corpuscular Volume 82.2 FL (87-102); Mean Platelet Volume 12.2 FL (9.6-12.0); Monocytes # 1.9 10*3/uL (0.11-0.8); Monocytes % 8.8 % (1.7-12.7); Neutrophils # 12.1 10*3/uL (1.4-7.4); Neutrophils % 55.7 % (38.7-73.9); Platelet Count 338 T/CUMM (130-400); Red Blood Count 3.98 MC/CUMM (3.8-5.5); White Blood Count 21.7 T/CUMM (4-12)
[2017-05-24 03:17] LABS: Albumin 2.9 G/DL (3.4-5.0); Bilirubin,Total 0.6 MG/DL (0.2-1.0); Calcium 8.4 MG/DL (8.5-10.1); Osmolality,Calculated 267.1 MOS/KG (273-304); Phosphorous 3.4 MG/DL (2.5-4.9); Potassium 4.2 MMOL/L (3.5-5.1); Total Protein 5.5 G/DL (6.4-8.3)
[2017-05-24 03:55] LABS: Eosinophils 6 % (0-10); Lymphocytes 30 % (20-55); Platelet Estimate Normal; Segmented Neutrophils 59 % (50-85); Total Cells Counted 100
[2017-05-24] MEDS: PANTOPRAZOLE 40 MG VIAL IV SCH (08:19)
[2017-05-24] MEDS: ASPIRIN EC 81 MG TABLET PO SCH (08:19)
[2017-05-24] MEDS: DIPHENOXYLATE/ATROPINE 2.5-0.025 MG TABLET PO SCH ×3 (08:19→22:27)
[2017-05-24] MEDS: MULTIVITAMIN (BEROCCA) TABLET PO SCH (08:19)
[2017-05-24] MEDS: CHOLESTYRAMINE/ASPARTAME 4 GM PACK PO SCH ×2 (08:19→22:26)
[2017-05-24] MEDS: CETIRIZINE 10 MG TABLET PO SCH (08:19)
[2017-05-24] MEDS: SODIUM CHLORIDE 1 GM TABLET PO SCH ×3 (08:19→22:26)
[2017-05-24] MEDS: POTASSIUM CHLORIDE 20 MEQ TABLET PO SCH (08:19)
[2017-05-24] MEDS: CITALOPRAM 20 MG TABLET PO SCH (08:19)
[2017-05-24] MEDS: ZINC OXIDE 16% PASTE 57 GM TUBE TOP SCH ×2 (08:19→22:27)
[2017-05-24] MEDS: ALPRAZolam 0.25 MG TABLET PO PRN ×2 (08:19→22:27)
[2017-05-24] MEDS: POTASSIUM PHOS/SOD PHOS POWDER 250 MG PACK PO SCH ×3 (08:19→16:03)
--- NOTE | 2017-05-24 08:19 | Hospitalist Progress Note ---
<Delfina Doda - Last Filed: 05/24/17 08:17> Assessment and Plan (1) Hyponatremia Status: Acute Assessment and plan: At the time of ED presentation, patient's sodium level was noted at 118. The patient was absent of any profound neurological deficits at the time of assessment. We will carefully replace and recheck labs in a.m. We will start normal saline with 20 of KCl at 65 mL an hour and sodium chloride tablets 2 g 3 times daily. 05/19-modest improvement in sodium; sodium noted at 124 today from 118 at the time of admission. No profound neurological deficits noted. We will continue normal saline with 20 KCl at 65 mL/hr and sodium chloride tablets 2 g 3 times daily. We will recheck sodium level in a.m. 05/20-Sodium improved today; sodium noted at 133 today. We will continue normal saline with 20 KCl 65 mL an hour. We will decrease to sodium chloride tablets to once daily. 05/21- Sodium noted at 132 today; we will continue normal saline 20 KCl at 65 milliliters an hour. We will increase sodium chloride tablets to twice daily 05/22-sodium noted at 130 today; we will continue normal saline with 20 KCl continue sodium chloride tablets as previously ordered. 05/23-continue IV fluids and sodium chloride tablets as ordered. Will recheck labs in a.m. 05/24-sodium normalized at 135. Current Visit: Yes (2) Hypokalemia Status: Acute Assessment and plan: Potassium was noted at 2.0 at the time of admission. We will carefully replace and recheck in a.m. We will start normal saline with 20 of KCl at 65 mL an hour. 05/19-Modest improvement in potassium however potassium remains low. Potassium noted at 2.5. We will give her 40 mEq of potassium as a one-time dose today in addition to potassium replacement protocol. We will continue normal saline with 20 KCl at 65 mL an hour. We will recheck CMP in a.m. 05/20-Potassium noted at 3.3. We will replace and recheck in a.m. 05/21- Potassium noted at 3.3. Will replace and recheck in AM. 05/22-potassium noted at 4.0. 05/24-potassium normalized at 4.2 today will recheck in a.m. Current Visit: Yes (3) Diarrhea Status: Acute Assessment and plan: The patient had multiple episodes of diarrhea in the ED. She reports that the diarrhea has been chronic in nature for the last couple of months. We have obtained stool specimen for ova and parasites, WBCs, C. difficile, and Gram stain. We will gently rehydrate and reassess in a.m. 05/20-multiple episodes of diarrhea continue. Stools were essentially negative for C. difficile, white blood cells, and ova and parasites. We will continue hydration and start Questran. 05/23-multiple stools reported on last night per staff. We will start Lomotil 3 times daily. 05/24-decrease in loose stools reported per nursing staff. We will continue Lomotil as previously ordered. Current Visit: Yes Qualifiers: Diarrhea type: unspecified type Qualified Code(s): R19.7 - Diarrhea, unspecified (4) Unsatisfactory living conditions Status: Acute Assessment and plan: Patient currently lives alone. Her sister was present at bedside and voiced multiple concerns regarding the patient's current living situation. She spoke with the apartment aquatic facility manager in the apartment aquatic facility manager has expressed concerns to her also regarding the patient's living situation. We will consult psychotherapist social worker and case management to evaluate for placement at the time of discharge. 05/19-psychotherapist social worker has been consulted for alliance evaluation and swing bed placement. Current Visit: Yes (5) Weakness generalized Status: Acute Assessment and plan: We will consult physical and Occupational Therapy to evaluate and treat. 05/21-The patient has refused to get out of bed. I along with the nursing staff assisted the patient to the bathroom this morning. The patient's gait is very steady only requiring standby assist for safety. Current Visit: Yes (6) Leukocytosis Status: Acute Assessment and plan: Patient was seen and evaluated by infectious disease on yesterday. We appreciate the input. We will await follow-up blood cultures for results. Antibiotic agents have been discontinued per ID recommendation. We will monitor closely. White blood cell count noted at 29.1. The source of the patient's leukocytosis may be indeed associated with stress response; since no obvious signs of infection have been identified. 05/24-white blood cell count noted at 21.7. This is a modest decrease from yesterday at 29.1. We will continue to monitor closely. Blood cultures were redrawn on 7/28/17 no growth to date noted. We will continue to monitor for blood culture results. Current Visit: Yes Hospitalist: Subjective Interval history: Patient seen and examined; chart reviewed. No significant overnight events reported per staff. Patient reports decrease in loose stools since the initiation of Lomotil yesterday. Patient voiced multiple concerns regarding the need for long-term inpatient admission. Patient states "my sister moved all of months to have out of my apartment on yesterday and she is trying to placement in a correction". Patient states "I do not need a correction placement and my sister does not have the right to place me in the correction , she is not my power of research attorney or healthcare proxy". Exam - Constitutional Vitals: Period Temp Pulse Resp BP Sys/Blanco Pulse Ox Last 24 Hr 97.0 F-98.5 F 94-104 16-94 99-136/57-68 95-96 General appearance: normal weight, no acute distress - Head Head exam: Present: normal inspection, normocephalic, atraumatic - Eye Eye exam: Present: EOMI Pupils: Present: SYEDA, normal accommodation - ENT ENT exam: Present: normal exam, normal external ear exam, normal oropharynx - Neck Neck exam: Present: normal inspection. Absent: lymphadenopathy, meningismus, tenderness, thyromegaly - Respiratory Respiratory exam: Present: clear to auscultation bilaterally. Absent: rales, rhonchi, stridor, wheezes - Cardiovascular Cardiovascular exam: Present: regular rate and rhythm. Absent: carotid bruit, diastolic murmur, gallop, JVD, rubs, systolic murmur - GI/Abdominal GI/Abdominal exam: Present: normal bowel sounds, soft. Absent: tenderness, rebound - Extremities Exam Extremities exam: Present: normal inspection, normal capillary refill, full ROM. Absent: edema - Back Exam Back exam: Present: normal inspection - Neurological Exam Neurological exam: Present: alert, oriented X3 - Psychiatric Psychiatric exam: Present: normal affect, normal mood - Skin Skin exam: Present: normal color, warm Results - Labs CBC & BMP: 05/24/17 01:26 05/24/17 01:26 Lab Results: I have reviewed the past 24 hour labs <Kristan You - Last Filed: 05/24/17 10:51> Hospitalist: Subjective Interval history: Diarrhoea has improved. Awaiting placement. Exam - Constitutional Vitals: Period Temp Pulse Resp BP Sys/Blanco Pulse Ox Last 24 Hr 97.0 F-98.5 F 94-123 16-94 99-136/51-68 94-96 Results - Labs CBC & BMP: 05/24/17 01:26 05/24/17 01:26
[2017-05-25] MEDS: CHOLESTYRAMINE/ASPARTAME 4 GM PACK PO SCH ×2 (08:58→21:26)
[2017-05-25] MEDS: DIPHENOXYLATE/ATROPINE 2.5-0.025 MG TABLET PO SCH ×3 (08:58→21:50)
[2017-05-25] MEDS: CETIRIZINE 10 MG TABLET PO SCH (08:58)
[2017-05-25] MEDS: SODIUM CHLORIDE 1 GM TABLET PO SCH ×3 (08:58→21:26)
[2017-05-25] MEDS: CITALOPRAM 20 MG TABLET PO SCH (08:58)
[2017-05-25] MEDS: POTASSIUM CHLORIDE 20 MEQ TABLET PO SCH (08:58)
[2017-05-25] MEDS: ASPIRIN EC 81 MG TABLET PO SCH (08:58)
[2017-05-25] MEDS: ALPRAZolam 0.25 MG TABLET PO PRN ×2 (08:59→21:26)
[2017-05-25] MEDS: POTASSIUM PHOS/SOD PHOS POWDER 250 MG PACK PO SCH ×3 (09:00→18:40)
[2017-05-25] MEDS: MULTIVITAMIN (BEROCCA) TABLET PO SCH (09:00)
[2017-05-25] MEDS: PANTOPRAZOLE 40 MG VIAL IV SCH (09:00)
[2017-05-25] MEDS: ZINC OXIDE 16% PASTE 57 GM TUBE TOP SCH ×2 (09:00→21:28)
--- NOTE | 2017-05-25 11:12 | Discharge Summary ---
Hospital Course - Hospital Course Hospital Course: 66-year-old female with a medical history significant for gastric ulcerations s/ p hysterectomy and gastrectomy.She lives alone and her apartment irrigation manager is threatening to evict her due to poor hygiene and living condition. She was brought to the ER for evaluation of nausea, vomiting, diarrhea.Upon arrival, her sodium was 118.She was admitted started on IVF, then sodium pills. Her stool studies was negative for C.difficile,no WBC, no pathogen. Her BC showed no growth. Her sodium and potassium improved. PT/OT were consulted.GI saw her in consultation. Patient refused colonoscopy and wishes to have this done as an outpatient at [place]. They recommended the use of Viberzi 100 mg p.o. twice daily for diarrhea predominant irritable bowel syndrome if on biopsy she proves not to have infectious colitis.Her WBC was worsening so ID was consulted.They were thinking that her leukocytosis was completely nontoxic appearing with no obvious focus of ongoing bacterial infection at this time. They suggested stopping Cipro and Flagyl and thought her gastroenteritis was probably viral in origin.HIV testing was unreactive.Oncology also saw in consultation and their impression was Elevated mature neutrophil count without any evidence to suggest hematologic malignancy. Red cell count and platelet count are normal. They felt that the neutrophilia is reactive.WBC and symptoms progressing improved.BC-showed no growth.Vitals remained stable, patient will be going to either [facility] today or Home with Homehealth and PT. She will follow with PCP in 1week.GI and Oncology as scheduled. - Time spent with patient Time with patient DS: Greater than 30 minutes (Time spent> 35mins) Diagnosis - Discharge Diagnosis (1) Hyponatremia Status: Acute (2) Hypokalemia Status: Acute (3) Diarrhea Status: Acute (4) Unsatisfactory living conditions Status: Acute (5) Leukocytosis Status: Acute (6) Gastroenteritis Status: Acute Specialty Discharge - Follow Up or Referrals Discharge Plan - Discharge Data Disposition: Home Health Service Condition at Discharge: Stable Discharge Diet: advance to your usual diet Activity: resume usual activities as tolerated - Discharge Medications New Diphenoxylate/Atrop 2.5-0.025 [Lomotil Tab] 1 tablet PO TID #20 tablet Multivitamin (Berocca) [Berocca] 1 tablet PO DAILY #30 tablet Citalopram [CeleXA] 20 mg PO DAILY #30 tablet Zinc Oxide 16% Paste [Ney's Butt Paste] 1 applic TOP PRN PRN #1 applic PRN Reason: Diaper Rash Continue Aspirin EC Tab 81 mg PO DAILY Esomeprazole Magnesium [Nexium] 40 mg PO DAILY Hydrocodone/Acetaminophen [Hydrocodon-Acetaminophn 10-325] 1 each PO Q8HR PRN #20 PRN Reason: Pain - Follow Up or Referral - Forms/Instructions Instructions: Hyponatremia (DC), Hypokalemia (DC), Gastroenteritis (DC) Additional Discharge Instructions: Follow with PCP in 1week. Follow GI and Oncology as scheduled. Exam - Constitutional Vitals: Period Temp Pulse Resp BP Sys/Blanco Pulse Ox Last 24 Hr 97.1 F-98.6 F 84-115 16-20 110-134/60-71 94-98 General appearance: no acute distress - Head Head exam: Present: normal inspection - Respiratory Respiratory exam: Present: clear to auscultation bilaterally - Cardiovascular Cardiovascular exam: Present: regular rate and rhythm - GI/Abdominal GI/Abdominal exam: Present: normal bowel sounds - Extremities Exam Extremities exam: Present: normal inspection - Neurological Exam Neurological exam: Present: alert, oriented X3 Discharge Results Procedures and tests throughout hospitalization: Pending Orders 05/22/17 09:23 Blood Culture Stat Labs on day of discharge: Preliminary micro results at discharge 05/22/17 09:23 Blood Culture - Preliminary Blood No growth at 3 days 05/22/17 09:23 Blood Culture - Preliminary Blood No growth at 3 days DS: Provider Date of admission: 05/18/17 15:31 Primary care physician: . No PCP Attending physician on admission: Shiv Kimble MD Consults: 05/18/17 15:44 Consult to Case Mgmt/Social Srvs [CONS] Routine Reason for Case Mgmt/Social Srvs: Rehab Other Swingbed/SNF/Custodial 05/18/17 16:37 Consult to Dietitian [CONS] Routine Reason for Dietitian: Diet Instruction Consult Comment: 60 pound weight loss over 2 year without trying 05/19/17 10:43 Consult to Case Mgmt/Social Srvs [CONS] Routine Reason for Case Mgmt/Social Srvs: Rehab Other Psychiatric Management 05/19/17 10:44 Consult to Occupational Therapy [CONS] Routine Reason for Occupational Therapy: Evaluate and Treat Start Therapy: Today Consult to Physical Therapy [CONS] Routine Reason for Physical Therapy: Evaluate and Treat Start Therapy: Today 05/22/17 07:46 Consult to Physician [CONS] Routine Comment: Consulting Provider: Liyah Palma When should Consulting Provider be notified: Now Person Notified: marleen Date Notified: 05/22/17 Time Notified: 08:50 05/22/17 08:35 Consult to Physician [CONS] Routine Comment: On-call physician/leukemoid state Consulting Provider: Jose Chandler Consult to Specialist Group: Hematology When should Consulting Provider be notified: Now Person Notified: henrique Date Notified: 05/22/17 Time Notified: 09:25 Discharging clinician: Kristan You MD
--- NOTE | 2017-05-25 12:14 | Infectious Disease Progress ---
Assessment and Plan (1) Gastroenteritis Status: Acute Assessment and plan: Possibly viral, it was nonbloody and not associated with fever. The diarrhea and vomiting have resolved. Current Visit: Yes (2) Leukocytosis Status: Acute Assessment and plan: Likely reactive leukocytosis, somewhat better since last week with patient off antibiotics. No associated fever or other symptoms. [place]kin benign by oncology. Recommendations: White blood cell count can be monitored in outpatient setting. No indication for antibiotics. I will sign off. Call again as needed. Current Visit: Yes Infectious Disease - PN: Subj Interval history: Patient doing fairly okay in general, she is just a bit upset that she is being discharged to specific group home today. She has not any fever over the weekend, no recurrence of the diarrhea or vomiting and no other new symptoms. She has been off antibiotics for about 3 days. Infectious Disease Exam (PN) - Constitutional Vitals: Temp Pulse Resp BP Pulse Ox 98.8 F 138 H 20 120/81 94 L 05/25/17 11:29 05/25/17 11:29 05/25/17 11:29 05/25/17 11:29 05/25/17 11:29 General appearance: no acute distress Exam: General appearance: no acute distress, completely nontoxic appearing - Eye Eye exam: Present: EOMI. no icterus Pupils: Present: SYEDA - ENT ENT exam: no oral exudates - Respiratory Respiratory exam: vesicular BS, no crepitations or wheezes - Cardiovascular Cardiovascular exam: regular rate and rhythm, no murmurs - GI/Abdominal GI/Abdominal exam: normal bowel sounds, soft, non-tender, no organomegaly or mass - Extremities Exam Extremities exam: no edema - Skin Skin exam: no rash Results - Labs CBC & BMP: 05/24/17 01:26 05/24/17 01:26 Lab Results: I have reviewed the past 24 hour labs (Blood cultures negative to date) Specialty Discharge - Follow Up or Referrals
[2017-05-25] MEDS: SODIUM CHLOR 0.9% KCL 20 MEQ 20 MEQ/1,000 ML BAG IV SCH (22:01)
[2017-05-26] MEDS: SODIUM CHLOR 0.9% KCL 20 MEQ 20 MEQ/1,000 ML BAG IV SCH ×2 (07:37→09:03)
[2017-05-26] MEDS: PANTOPRAZOLE 40 MG VIAL IV SCH (08:54)
[2017-05-26] MEDS: CHOLESTYRAMINE/ASPARTAME 4 GM PACK PO SCH (08:54)
[2017-05-26] MEDS: CETIRIZINE 10 MG TABLET PO SCH (08:55)
[2017-05-26] MEDS: POTASSIUM CHLORIDE 20 MEQ TABLET PO SCH (08:55)
[2017-05-26] MEDS: CITALOPRAM 20 MG TABLET PO SCH (08:55)
[2017-05-26] MEDS: ASPIRIN EC 81 MG TABLET PO SCH (08:55)
[2017-05-26] MEDS: SODIUM CHLORIDE 1 GM TABLET PO SCH (08:55)
[2017-05-26] MEDS: MULTIVITAMIN (BEROCCA) TABLET PO SCH (08:55)
[2017-05-26] MEDS: ZINC OXIDE 16% PASTE 57 GM TUBE TOP SCH (08:56)
[2017-05-26] MEDS: POTASSIUM PHOS/SOD PHOS POWDER 250 MG PACK PO SCH ×2 (08:56→12:38)
[2017-05-26] MEDS: DIPHENOXYLATE/ATROPINE 2.5-0.025 MG TABLET PO SCH (09:02)
[2017-05-26 10:50] LABS: Basophils # 0.1 10*3/uL (0.0-0.2); Basophils % 0.5 % (0.0-0.8); Eosinophils # 1.1 10*3/uL (0.0-0.87); Eosinophils % 4.5 % (0.00-10.9); Hematocrit 38.8 VOL% (35.7-47.0); Hemoglobin 13.7 GM/DL (12.0-16.0); Immature Granulocytes % 1.3 %; Immature Granulocytes Absolute 0.32 #; Lymphocytes # 3.7 10*3/uL (1.4-4.0); Lymphocytes % 15.6 % (21.3-54.2); Mean Corpuscular HGB Conc 35.3 GM/DL (32-36); Mean Corpuscular Hemoglobin 29 PG (27-34); Mean Platelet Volume 11.6 FL (9.6-12.0); Monocytes # 2.1 10*3/uL (0.11-0.8); Monocytes % 8.8 % (1.7-12.7); Neutrophils # 16.6 10*3/uL (1.4-7.4); Neutrophils % 69.3 % (38.7-73.9); Platelet Count 526 T/CUMM (130-400); Red Blood Count 4.73 MC/CUMM (3.8-5.5); Red Cell Distribution Width 14.3 % (9.3-17.3)
[2017-05-26 11:25] LABS: Band Neutrophils 2 % (0-10); Eosinophils 11 % (0-10); Hypochromasia 1+; Lymphocytes 17 % (20-55); Microcytosis Slight; Platelet Estimate Increased; Segmented Neutrophils 65 % (50-85); Total Cells Counted 100
[2017-05-26 12:04] VITALS: BP 120/75
--- NOTE | 2017-06-03 06:28 | Emergency Department Note ---
Konrad Lovett Manpreet, am scribing for, and in the presence of, Jose Francisco Villaseñor MD 13:15. Charleen Lovett Phillip K, MD, personally performed the services described in this documentation, ascribed by Dario Silvestre in my presence, and it is both accurate and complete [id number] . Arrival - Arrival Chief Complaint: Nausea/Vomiting/Diarrhea Stated Complaint: WEAK DEHYDRATED ED Nursing Triage Note: Pt c/o weakness, weight loss, nausea, vomiting, and diarrhea off and on x 2 months. Pt was seen here on Thu for same complaint. Mode of Arrival: Wheelchair Limitations: No Limitations Source: Patient - History of Present Illness HPI Narrative: Pt is a 66 y/o female who presents to the ED with CC of weakness, N/V/D, and weight loss intermittently since 05/13/17. Pt was seen in the ED for the same complaint on 05/13/17 with no relief. Pt states she has lost 35 pounds in the last 4 to 5 months. Pt c/o ad pain and a burning pain. Pt had a perforated ulcer in the and had Sx to remove it. Pt had a low grade fever intermittently in the past week but recorded a temperature of 99.2 F during triage. Pt has not been around anyone who is sick. Pt takes Nexium for ulcers but has stopped taking her HTN medication due to the weight loss. No other pains /complaints reported to ED. Consistency: intermittent Severity: moderate Severity scale (1-10): 3 Quality: burning Allergies/Adverse Reactions: Allergies Allergy/AdvReac Type Severity Reaction Status Date / Time Penicillins Allergy Unknown/Unable Verified 05/14/17 17:08 to obtain steroids Allergy Unknown/Unable Uncoded 05/14/17 17:08 to obtain Home Medications: Home Medications Medication Instructions Recorded Confirmed Type Aspirin EC Tab 81 mg PO DAILY 05/18/17 05/18/17 History Esomeprazole Magnesium [Nexium] 40 mg PO DAILY 05/18/17 05/18/17 History Hydrocodone/Acetaminophen 1 each PO Q8HR PRN 05/18/17 05/18/17 History [Hydrocodon-Acetaminophn 10-325] Review of System - Review of System 12 point system: reviewed and no additional remarkable complaints except as stated - Review of System Constitutional: Present: weight loss (40 lbs in last 4-5 months). Absent: chills, diaphoresis, fever (Low grade fever at home but not currently) Respiratory: Absent: cough, respiratory distress Gastrointestinal: Present: abdominal pain, nausea, vomiting, diarrhea Musculoskeletal: Absent: back pain, leg pain Neurological: Absent: headache, weakness Medical,Surgical,& Family Hx - Medical History Gastrointestinal: History of: GI Problems (ulcer) - Surgical History Abdominal Surgeries: Surgical HX of: Abdominal Surgery Reproductive Surgeries: Surgical HX of;: Hysterectomy - Social History Smoking Status: Never smoker Frequency of Alcohol Use: None Exam Vital Signs: Vital Signs Temperature 99.2 F 05/18/17 12:44 Pulse Rate 92 H 05/18/17 15:56 Respiratory Rate 17 05/18/17 15:56 Blood Pressure 150/68 05/18/17 15:56 O2 Sat by Pulse Oximetry 100 05/18/17 15:56 - General General appearance: alert, in no apparent distress - Head Head exam: Present: atraumatic, normocephalic, normal inspection - Eye Eye exam: Present: normal appearance, PERRL, EOMI - ENT ENT exam: Present: normal exam, normal oropharynx, mucous membranes moist, TM's normal bilaterally - Neck Neck exam: Present: normal inspection, full ROM, trachea midline. Absent: tenderness, thyromegaly - Chest Chest inspection: Present: normal inspection, symmetric chest wall rise. Absent : tenderness - Respiratory Respiratory exam: Present: normal lung sounds bilaterally. Absent: accessory muscle use, rales, respiratory distress - Cardiovascular Cardiovascular exam: Present: normal rhythm, tachycardia, normal heart sounds. Absent: regular rate, murmur, rubs, gallop - Abdominal Exam Abdominal exam: Present: soft, normal bowel sounds. Absent: distention, tenderness - Extremities Exam Extremities exam: Present: normal inspection, full ROM. Absent: tenderness - Back Exam Back exam: Present: normal inspection, full ROM. Absent: tenderness - Neurological Exam Neurological exam: Present: alert, oriented X3, CN II-XII intact, reflexes normal - Psychiatric Psychiatric exam: Present: normal affect, normal mood - Skin Skin exam: Present: warm, dry, intact, normal color. Absent: pallor Course Course Narrative: Patient discussed with the hospitalist. Results - Labs CBC & BMP: 05/18/17 13:00 05/18/17 13:00 Lab Results: I have reviewed the patients labs Labs: Laboratory Tests 05/18/17 05/18/17 13:00 13:00 WBC 23.3 H D RBC 5.55 H Hgb 16.0 Hct 42.1 MCV 75.9 L MCH 29 MCHC 38.0 H RDW 13.2 Plt Count 464 H D MPV 12.8 H Neut % (Auto) 76.9 H Lymph % (Auto) 12.3 L Neut # (Auto) 17.9 H [place] # (Auto) 2.3 H Sodium 118 L* Potassium 2.0 L* Chloride 75 L Carbon Dioxide 29 Anion Gap 16.0 H BUN 14 Creatinine 0.90 Glucose 153 H Calculated Osmolality 241.5 L Total Bilirubin 1.40 H Total Protein 8.4 H Globulin 4.4 H Albumin/Globulin Ratio 0.9 L Laboratory Tests 05/18/17 14:49 Urine pH 6.0 Ur Specific Roulette 1.012 Urine Protein 100 Urine Ketones 20 Urine Urobilinogen < 2.0 H Urine RBC 2 Urine WBC 3 Microbiology 05/18/17 Unknown Stool Clostridium difficile Toxin Assay - Final Negative for CDiff A &/or B Ag Laboratory Tests 05/18/17 05/18/17 13:30 15:42 Phosphorus 3.0 Magnesium 2.0 - Diagnostic Findings Procedure: Chest x-ray: report reviewed by me (Mild scarring in the perihilar regions without acute cardiopulmonary pathology.), CT Abdomen and Pelvis: report reviewed by me (CT Abd/Pel w/o con: No evidence of acute process demonstrated.) Disposition Clinical Impression: Hyponatremia, Hypokalemia, Leukocytosis, Weight loss Case discussed with: patient Disposition: Still a Patient Condition: Guarded
== END 2017-05-26 12:26 | DRG 392 ==
LOC: N.ED 12:21 → SUATTDRO 15:31 → N.EDINP 15:31 → N.2E 16:17
PROVIDERS: ADMIT Internal Medicine Infectious Disease; ATTEND Internal Medicine

== ENCOUNTER 2018-03-23 17:41 | Inpatient (IN) ==
[2018-03-23] MEDS ORDERED: SODIUM CHLORIDE 0.9% 1,000 ML IV STA (18:33)
[2018-03-23 19:31] LABS: Basophils % 0.1 % (0.0-0.8); Eosinophils # 0.2 10*3/uL (0.0-0.87); Eosinophils % 2.1 % (0.00-10.9); Hematocrit 38.4 VOL% (35.7-47.0); Hemoglobin 12.5 GM/DL (12.0-16.0); Immature Granulocytes % 0.3 %; Immature Granulocytes Absolute 0.03 #; Lymphocytes # 2.1 10*3/uL (1.4-4.0); Lymphocytes % 21.2 % (21.3-54.2); Mean Corpuscular HGB Conc 32.6 GM/DL (32-36); Mean Corpuscular Hemoglobin 27 PG (27-34); Mean Corpuscular Volume 83.8 FL (87-102); Mean Platelet Volume 10.9 FL (9.6-12.0); Monocytes # 0.7 10*3/uL (0.11-0.8); Monocytes % 6.9 % (1.7-12.7); Neutrophils # 6.9 10*3/uL (1.4-7.4); Neutrophils % 69.4 % (38.7-73.9); Platelet Count 168 T/CUMM (130-400); Red Blood Count 4.58 MC/CUMM (3.8-5.5); Red Cell Distribution Width 16.6 % (9.3-17.3); White Blood Count 9.9 T/CUMM (4-12)
[2018-03-23 19:38] LABS: Apearance,Urine Slightly Hazy (Clear); Bacteria,Urine Occasional /HPF (Few); Bilirubin,Urine Negative (Negative); Blood, Urine Negative (Negative); Glucose,Urine (UA) Negative (Negative); Ketones,Urine 5 mg/dL (Negative); Mucus,Urine Occasional /LPF (Occasional); Nitrite,Urine Negative (Negative); Protein,Urine 30 MG/DL; RBC,Urine 1 /HPF (0-4); Squamous Epithelial Cell,Urine Occasional /HPF (0-10); Urine Color Yellow (Yellow); Urine Specific Gravity 1.021 (1.001-1.035); Urine Urobilinogen < 2.0 EU/DL (0.2-1.0); WBC,Urine 5 /HPF (0-6)
[2018-03-23 19:45] LABS: INR 1.1; PT Patient Result 11.3 SECS; Partial Thromboplastin Time 34.4 SECS (0-40)
[2018-03-23 19:50] LABS: Alanine Aminotransferase 15 U/L (13-56); Albumin 3.3 G/DL (3.4-5.0); Alkaline Phosphatase 88 U/L (45-117); Aspartate Amino Transferase 16 U/L (0-37); Blood Urea Nitrogen 17 MG/DL (7-18); Calcium 9.1 MG/DL (8.5-10.1); Glucose 100 MG/DL (74-106); Osmolality,Calculated 265.5 MOS/KG (273-304); Potassium 3.4 MMOL/L (3.5-5.1); Sodium 132 MMOL/L (136-145); Total Protein 8.5 G/DL (6.4-8.3)
[2018-03-23 20:03] LABS: Barbiturates Screen,Urine Negative (Negative); Benzodiazepines Screen,Urine Negative (Negative); Cannabinoid Screen,Urine Negative (Negative); Opiate Screen,Urine Negative (Negative); Phencyclidine Screen,Urine Negative (Negative)
[2018-03-23] MEDS ORDERED: FUROSEMIDE 40 MG/4 ML VIAL IV STA (20:42)
[2018-03-23] MEDS ORDERED: FUROSEMIDE 40 MG/4 ML VIAL ONE (20:47)
[2018-03-23] MEDS ORDERED: NOREPINEPHRINE 4 MG/4 ML VIAL IV ONE (21:13)
[2018-03-23] MEDS ORDERED: ENOXAPARIN 40 MG/0.4 ML SYRINGE SUBCUT SCH (21:30)
[2018-03-23] MEDS ORDERED: LORazepam 2 MG/1 ML VIAL ONE (21:32)
[2018-03-23] MEDS ORDERED: LORazepam 2 MG/1 ML VIAL IV STA (21:32)
[2018-03-23] MEDS: NOREPINEPHRINE 8 MG in SODIUM CHLORIDE 0.9% 242 ML IV PRN (21:48)
[2018-03-23] MEDS ORDERED: SODIUM CHLORIDE 0.9% 1,000 ML IV SCH (22:00)
[2018-03-23] MEDS ORDERED: NOREPINEPHRINE 8 MG in SODIUM CHLORIDE 0.9% 242 ML IV PRN (22:27)
[2018-03-23] MEDS ORDERED: FUROSEMIDE 40 MG/4 ML VIAL IV ONE (22:34)
[2018-03-23 22:38] LABS: ABG Base Excess -6.3 MMOL/L (-2.5-2.5); ABG HCO3 19.3 MMOL/L (20-26); ABG Oxygen Saturation 99.6 % (95-100); ABG PCO2 45.2 MM HG (35-48); ABG PH 7.269 (7.35-7.45); ABG TCO2 18.6 MMOL/L (23-27); Allen Test Positive; Pt O2 Delivery Device BIPAP
[2018-03-23] MEDS ORDERED: VECURONIUM 10 MG VIAL IV ONE ×2 (22:41→22:46)
[2018-03-23] MEDS ORDERED: ETOMIDATE 20 MG/10 ML VIAL IV ONE ×2 (22:41→22:45)
[2018-03-23] MEDS ORDERED: ONDANSETRON 4 MG/2 ML VIAL ONE (22:43)
[2018-03-23] MEDS ORDERED: ONDANSETRON 4 MG/2 ML VIAL IV PRN (22:45)
[2018-03-23] MEDS ORDERED: DOBUTamine 500 MG/250 ML PREMIX IV PRN (22:50)
[2018-03-23] MEDS ORDERED: fentaNYL INJ 1,250 MCG in SODIUM CHLORIDE 0.9% 225 ML IV PRN (22:52)
[2018-03-23] MEDS ORDERED: PROPOFOL 1,000 MG/100 ML BOTTLE IV ONE (22:52)
[2018-03-23] MEDS ORDERED: PROPOFOL 1,000 MG/100 ML BOTTLE IV SCH (23:00)
[2018-03-23] MEDS ORDERED: DOBUTamine 500 MG/250 ML PREMIX IV ONE (23:21)
[2018-03-23] MEDS ORDERED: EPINEPHrine 1 MG/10 ML SYRINGE ONE ×2 (23:31→23:32)
[2018-03-24 01:03] LABS: Apearance,Urine Slightly Hazy (Clear); Bilirubin,Urine Negative (Negative); Blood, Urine Large mg/dL (Negative); Glucose,Urine (UA) Negative (Negative); Ketones,Urine Negative (Negative); Nitrite,Urine Negative (Negative); Protein,Urine Negative; RBC,Urine 321 /HPF (0-4); Urine Color Yellow (Yellow); Urine Urobilinogen < 2.0 EU/DL (0.2-1.0); WBC,Urine 145 /HPF (0-6)
[2018-03-24] MEDS ORDERED: PHENYLEPHRINE DRIP 40 MG/250 ML PREMIX IV ONE (01:24)
[2018-03-24] MEDS: PHENYLEPHRINE DRIP 40 MG/250 ML PREMIX IV PRN ×5 (01:32→15:03)
[2018-03-24 02:19] LABS: Basophils % 0.1 % (0.0-0.8); Hematocrit 37.7 VOL% (35.7-47.0); Immature Granulocytes % 1.4 %; Immature Granulocytes Absolute 0.29 #; Lymphocytes # 0.8 10*3/uL (1.4-4.0); Lymphocytes % 4.1 % (21.3-54.2); Mean Corpuscular HGB Conc 31.8 GM/DL (32-36); Mean Corpuscular Hemoglobin 27 PG (27-34); Mean Corpuscular Volume 85.5 FL (87-102); Mean Platelet Volume 11.3 FL (9.6-12.0); Monocytes % 4.9 % (1.7-12.7); Neutrophils # 17.9 10*3/uL (1.4-7.4); Neutrophils % 89.5 % (38.7-73.9); Platelet Count 149 T/CUMM (130-400); Red Blood Count 4.41 MC/CUMM (3.8-5.5)
[2018-03-24 02:52] LABS: Alanine Aminotransferase 820 U/L (13-56); Albumin 2.4 G/DL (3.4-5.0); Alkaline Phosphatase 110 U/L (45-117); Aspartate Amino Transferase 1310 U/L (0-37); Blood Urea Nitrogen 19 MG/DL (7-18); CKMB % 8.4 %; Calcium 7.7 MG/DL (8.5-10.1); Glucose 218 MG/DL (74-106); Osmolality,Calculated 276.2 MOS/KG (273-304); Potassium 3.5 MMOL/L (3.5-5.1); Sodium 134 MMOL/L (136-145); Total Protein 6.4 G/DL (6.4-8.3)
[2018-03-24 02:54] LABS: Band Neutrophils 3 % (0-10); Lymphocytes 2 % (20-55); Segmented Neutrophils 92 % (50-85); Total Cells Counted 100
[2018-03-24 02:55] LABS: Anisocytosis 1+; Platelet Estimate Normal
[2018-03-24 03:00] LABS: Lactic Acid 7.2 MMOL/L (0.4-2.0)
[2018-03-24] MEDS: NOREPINEPHRINE 8 MG in SODIUM CHLORIDE 0.9% 242 ML IV PRN (03:27)
[2018-03-24] MEDS ORDERED: ALBUMIN 25% 50 GM in PREMIX 1 EACH IV ONE (03:30)
[2018-03-24 03:55] LABS: ABG Base Excess -10.8 MMOL/L (-2.5-2.5); ABG Oxygen Saturation 99.5 % (95-100); ABG PCO2 36.9 MM HG (35-48); ABG PH 7.245 (7.35-7.45); ABG TCO2 14.5 MMOL/L (23-27)
[2018-03-24] MEDS ORDERED: ALBUTEROL/IPRATROPIUM 3 ML NEB RESP TX PRN (03:56)
[2018-03-24] MEDS ORDERED: LEVOFLOXACIN INJ 750 MG in PREMIX 1 EACH IV SCH (04:00)
[2018-03-24] MEDS: PANTOPRAZOLE 40 MG VIAL IV SCH ×3 (04:10→22:05)
[2018-03-24] MEDS ORDERED: SODIUM BICARBONATE 50 MEQ/50 ML SYRINGE IV ONE (04:42)
[2018-03-24] MEDS ORDERED: VANCOMYCIN INJ 1,000 MG in SODIUM CHLORIDE 0.9% 250 ML IV SCH (06:00)
[2018-03-24] MEDS: metroNIDAZOLE INJ 500 MG in PREMIX 1 EACH IV SCH ×3 (06:00→22:06)
[2018-03-24 06:37] LABS: INR 1.6; Partial Thromboplastin Time 35.5 SECS (0-40)
[2018-03-24 07:20] LABS: Lactic Acid 10.6 MMOL/L (0.4-2.0)
[2018-03-24] MEDS: ALBUTEROL/IPRATROPIUM 3 ML NEB RESP TX SCH ×3 (08:00→21:05)
[2018-03-24] MEDS ORDERED: POTASSIUM CHLORIDE RIDER 10 MEQ in PREMIX 1 EACH IV PRN (08:27)
[2018-03-24] MEDS ORDERED: MAGNESIUM SULF RIDER 2 GM in PREMIX 1 EACH IV PRN (08:27)
[2018-03-24 08:33] LABS: Basophils % 0.1 % (0.0-0.8); Hemoglobin 10.4 GM/DL (12.0-16.0); Immature Granulocytes % 1.5 %; Immature Granulocytes Absolute 0.22 #; Lymphocytes # 1.1 10*3/uL (1.4-4.0); Lymphocytes % 7.1 % (21.3-54.2); Mean Corpuscular HGB Conc 31.5 GM/DL (32-36); Mean Corpuscular Hemoglobin 27 PG (27-34); Mean Corpuscular Volume 86.2 FL (87-102); Mean Platelet Volume 11.8 FL (9.6-12.0); Monocytes # 0.6 10*3/uL (0.11-0.8); Monocytes % 3.8 % (1.7-12.7); Neutrophils % 87.5 % (38.7-73.9); Platelet Count 122 T/CUMM (130-400); Red Blood Count 3.83 MC/CUMM (3.8-5.5); Red Cell Distribution Width 16.2 % (9.3-17.3); White Blood Count 14.8 T/CUMM (4-12)
[2018-03-24 08:59] LABS: Band Neutrophils 3 % (0-10); Eosinophils 1 % (0-10); Hypochromasia Slight; Lymphocytes 4 % (20-55); Platelet Estimate Normal; Segmented Neutrophils 90 % (50-85); Total Cells Counted 100
[2018-03-24 09:00] LABS: Microcytosis Slight; Ovalocytes Slight
[2018-03-24] MEDS ORDERED: APIXABAN 5 MG TABLET PO SCH (09:00)
[2018-03-24] MEDS ORDERED: HEPARIN/NACL 0.9% 2 UNITS/ML 1,000 ML IV ONE (09:21)
[2018-03-24 09:24] LABS: Albumin 2.7 G/DL (3.4-5.0); Calcium 7.6 MG/DL (8.5-10.1); Osmolality,Calculated 280.8 MOS/KG (273-304); Potassium 3.6 MMOL/L (3.5-5.1)
[2018-03-24] MEDS ORDERED: cefTRIAXone 1,000 MG in SYRINGE 1 EACH IV SCH (09:30)
[2018-03-24] MEDS ORDERED: SODIUM CHLORIDE 0.9% 1,000 ML IV PRN (10:56)
[2018-03-24] MEDS: FUROSEMIDE 40 MG/4 ML VIAL IV SCH ×2 (12:46→18:16)
[2018-03-24] MEDS ORDERED: DIGOXIN 0.5 MG/2 ML AMP IV ONE (14:04)
[2018-03-24] MEDS: LORazepam 2 MG/1 ML VIAL IV PRN ×2 (17:45→18:29)
[2018-03-24] MEDS: MORPHINE 4 MG/1 ML VIAL IV PRN ×3 (17:46→21:15)
[2018-03-24 21:06] VITALS: BP 132/56
== END 2018-03-24 21:23 | disposition expired | DRG 871 ==
LOC: EDUNIT# → EDBD → N.ED 17:41 → N.EDINP 21:23 → SUATTDRO 21:23 → N.CC 22:06
PROVIDERS: ADMIT Internal Medicine Infectious Disease; ATTEND Family Medicine